=== PATIENT | female | born 2000 | race Caucasian/White ===

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

== ENCOUNTER → 2021-02-16 | Outpatient (CLI) | payer OTHER ==
[~2021-02-16] MED LIST changes: +ALEV220T22 PO; -CLON0.2T; +CYAN500T14 PO; +DICY20TA11 PO; +DOXY-443 PO; +HYDR50TA70 PO; +LAMO150T3 PO; +MAGN1CAP PO; +NOXI1TAB PO; +PROBCAP14 PO; +XYZASOL2 PA
[2021-02-16 13:18] LABS: BASO # 0.1 10^3/uL (0.0-0.2); BASO % 0.7 % (0.0-1.0); EOS # 0.3 10^3/uL (0.0-0.5); EOS % 4.5 % (0.0-3.0); HEMATOCRIT 38.7 % (36.0-47.0); HEMOGLOBIN 12.7 g/dl (12.0-15.5); LYMPH # 2.8 10^3/uL (1.5-5.0); LYMPH % 40.8 % (24.0-44.0); MEAN CORPUSCULAR HEMOGLOBIN 27.1 pg (27.0-33.0); MEAN CORPUSCULAR HGB CONC 32.8 g/dl (32.0-36.5); MEAN CORPUSCULAR VOLUME 82.5 fl (80.0-96.0); MONO # 0.6 10^3/uL (0.0-0.8); MONO % 9.1 % (2.0-8.0); NEUTROPHILS % 44.6 % (36.0-66.0); PLATELET COUNT, AUTOMATED 250 10^3/uL (150-450); RED BLOOD COUNT 4.69 10^6/uL (4.00-5.40); WHITE BLOOD COUNT 6.7 10^3/uL (4.0-10.0)
[2021-02-16 13:28] LABS: INR 1.04; PARTIAL THROMBOPLASTIN TIME 30.8 SECONDS (25.9-37.0)
[2021-02-16 13:52] LABS: ALBUMIN 3.8 GM/DL (3.2-5.2); ALT/SGPT 21 U/L (12-78); BILIRUBIN,TOTAL 0.3 MG/DL (0.2-1.0); BLOOD UREA NITROGEN 13 MG/DL (7-18); CALCIUM LEVEL 9.2 MG/DL (8.5-10.1); CARBON DIOXIDE LEVEL 30 MEQ/L (21-32); CHLORIDE LEVEL 106 MEQ/L (98-107); GLUCOSE, FASTING 81 MG/DL (70-100); NT-PRO BNP 20 PG/ML (<125); POTASSIUM SERUM 4.1 MEQ/L (3.5-5.1); SODIUM LEVEL 140 MEQ/L (136-145); TOTAL PROTEIN 6.8 GM/DL (6.4-8.2)
== END ==
LOC: M PLALAB 11:03
PROVIDERS: ATTEND Family Medicine
DX: Z01.818 Encounter for other preprocedural examination (principal)

== ENCOUNTER → 2021-02-18 | Outpatient (CLI) | payer OTHER | LOC: M LABSMTC 09:12 | PROVIDERS: ATTEND Anesthesiology | DX: Z01.812 Encounter for preprocedural laboratory examination (principal); Z11.52 Encounter for screening for COVID-19 ==

== ENCOUNTER 2021-02-23 07:53 | Day surgery (SDC) | payer OTHER ==
[~2021-02-23] VITALS: Ht 170.2 cm; Wt 82.5 kg
[~2021-02-23 07:53] MED LIST changes: +HEPARIN SOD (PORCINE) 5000UNITS/ML 1ML VIAL/SYRINGE SQ ONE; +LR 1,000 ML IV ONE; +ceFAZolin SOD 2 GM in IV 1 EA IV ONE
--- OUTSIDE RECORDS SUMMARY | 2021-02-23 07:59 | CCD ---
Author Author [facility] Organization [facility] Address Unknown Phone Unavailable Care Team Providers Care Retail Banking Manager Name Role Phone Kwabena, Paige Unavailable PROBLEMS Type Condition ICD9-CM Code [id number] Code Onset Dates Condition S tatus W/U Status Risk SNOMED Code Notes Problem Attention deficit hyperactivity disorder (ADHD), unspecified ADHD type F90.9 Active confirmed 603357709 Problem Personality disorder F60.9 Active confirmed [id number] Problem Bipolar 1 disorder F31.9 Active confirmed 3 [id number] Problem Anxiety F41.9 Active confirmed [id number] Problem 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 Active confirmed [id number] ALLERGIES No Known Allergies ENCOUNTERS from 2001 to 2021-01-29 Encounter Location Date Provider Diagnosis [address] [id number] Jan, Paigekrystal Yuan IMMUNIZATIONS No Information SOCIAL HISTORY Sex Assigned At : Social History Observation Description Sex Assigned At Unknown REASON FOR REFERRAL No Information VITAL SIGNS No information MEDICATIONS Medication SIG (Take, Route, Frequency, Duration) Notes Start Da te End Date Status Probiotic - as directed Orally Activ e Doxycycline Monohydrate 100 MG 1 capsule Orally BID Active Dicyclomine HCl 20 MG 1 tablet Orally Three times a day for 30 day(s) Active hydrOXYzine HCl 50 MG ii Orally qd Jun, Active Lexapro 20 MG 1 tablet Orally Once a day Active Albuterol Sulfate (2.5 MG/3ML) 0.083% 3 ml as needed Inhalation jamie ry 6 hrs Active Vyvanse 20 MG 1 capsule in the morning Orally Once a day DX F9 0.9 Dec, Active B Complex - as directed Orally Activ e Nexplanon 68 MG as directed Subcutaneous Active D3 High Potency 25 MCG (1000 UT) 1 capsule Orally Once a day for 30 day(s) Active LaMICtal 150 MG 1tablet Orally Once a day Feb, Active Xyzal Allergy 24HR 5 MG 1 tablet in the evening Orally Once a day for 30 day(s) Active PROCEDURES No Information RESULTS No Results REASON FOR VISIT today's appt MEDICAL (GENERAL) HISTORY Type Description Date Medical History maintenance planner Medical History possible testoterone replacement Surgical History tonsils and adenoids removed 6 years old Surgical History tubes in ears age 6 Hospitalization History [facility] [place] FOR 2 WEEKS 2018 Goals Section No Information Health Concerns No Information MEDICAL EQUIPMENT No Information MENTAL STATUS No Information FUNCTIONAL STATUS No Information ASSESSMENTS No Information PLAN OF TREATMENT Medication Medication Name Sig Start Date Stop Date Lexapro 20 MG 1 tablet Orally Once a day LaMICtal 150 MG 1tablet Orally Once a day Feb, hydrOXYzine HCl 50 MG ii Orally qd Jun, Vyvanse 20 MG 1 capsule in the morning Orally Once a day DX F9 0.9 Dec, Next Appt Details Provider Name:Domi Abdul, 2021-01 10:00:00 AM, [address] [place] [address], [id number], Insurance Providers Payer Name Payer Address Payer Phone Insured Name Patient Relati onship to Insured Coverage Start Date Coverage End Date ON LICENSE OF [facility] [employer] MEDICAID [address] [facility] [id number] Shannon Lucas self
--- OUTSIDE RECORDS SUMMARY | 2021-02-23 07:59 | CCD | Continuity of Care Document ---
Author Author Shannon JOSEPH DO Organization Unknown Address [address] [place] [address] Phone [phone] Care Team Providers Care Sustainable Agriculture Faculty Name Role Phone Marilee Winchester M.D. AUTM [phone] Shanelle Spain P.A.-C AUTM [phone] Sdio AUTM [phone] Problems Active Problems Provider Date Chronic tonsillitis Jet Esquivel MD Onset: 06/16/2014 Hypertrophy of adenoids Jet Esquivel MD Onset: 5 Temporomandibular joint disorder Avila Gilmore MD Onset: 06/16/2014 Sialoadenitis Avila Gilmore MD Onset: 06/16/2014 Social History Type Date Description Comments Sex Female ETOH Use Denies alcohol use Tobacco Use Start: Unknown Smoke Free Home Tobacco Use Start: Unknown Denies Smoking Smoking Status Reviewed: 09/08/20 Denies Smoking Allergies and adverse reactions Active Allergies Criticality Reaction | Severity Comments Date Seasonal Unable to assess criticality 06/16/2014 Medications Active Medications SIG Qnty Indications Ordering Provide r Date Vyvanse 20mg Capsules 1cap po qd Unknown Xyzal Allergy 24HR 5mg Tablets 1tab po qd Unknown Lamictal 150mg Tablets 1tab p o qd Unknown Probiotic Capsules 1cap po q d Unknown Vitamin D3 25mcg (1000 Ut) Capsule s 1cap po qd Unknown Vitamin B12 1000mcg Tablets ER 1tab po qd Unknown Hydroxyzine HCL 50mg Tablets 1 po qhs prn Unknown Lexapro 20mg Tablets 1 by mouth every day Unknown Immunizations Description No Information Available Vital Signs Date Vital Result Comment 02/15/2021 11:37am BP Systolic 128 mmHg BP Diastolic 72 mmHg Heart Rate 88 /min Respiratory Rate 16 /min Body Temperature 98.1 F Height 67 inches 5'7" Weight 182.00 lb BMI (Body Mass Index) 28.5 kg/m2 [place] Body Weight 148 lb Weight 82.555 kg Weight Percentile 83rd Height Percentile 18 % BSA (Body Surface Area) 1.94 m2 05/20/2020 9:07am BP Systolic 118 mmHg BP Diastolic 62 mmHg Height 67 inches 5'7" Weight 169.00 lb BMI (Body Mass Index) 26.5 kg/m2 [place] Body Weight 148 lb Weight 76.658 kg Weight Percentile 73rd Height Percentile 19 % BSA (Body Surface Area) 1.88 m2 Results Description No Information Available Procedures Date Code Description Status 09/07/2020 95155 Office/Outpatient Established Mo d MDM 30-39 Min Completed Medical Devices Description No Information Available Encounters Type Date Location Provider Dx Diagnosis Office Visit 09/07/2020 3:30p [facility] Aneta Joseph, DO N62 Hypertrophy of breast F64.9 Gender identity disorder, un specified Assessments Date Code Description Provider 02/22/2021 N62 Hypertrophy of breast Aneta Pale y, DO 02/22/2021 F64.9 Gender identity disorder, unspec ified Aneta Opal, DO 02/15/2021 N62 Hypertrophy of breast Aneta Pale y, DO 02/15/2021 F64.9 Gender identity disorder, unspec ified Aneta Opal, DO 09/07/2020 N62 Hypertrophy of breast Aneta Pale y, DO 09/07/2020 F64.9 Gender identity disorder, unspec ified Aneta Opal, DO Plan of Treatment Future Appointment(s):* 02/23/2021 9:30 am - Aneta Joseph DO at [facility]astic Surgery * 03/01/2021 10:15 am - Aneta Joseph DO at [facility] Plastic Surgery 02/22/2021 - Aneta Joseph DO* N62 Hypertrophy of breast* Comments:* Consent signed today in the presence of the mother.Risk, benefits, and alternatives of the procedure were discussed with patient in details again and informed c onsent was signed and faxed to the hospital.Return to the office postop. * F64.9 Gender identity disorder, unspecified Functional Status Description No Information Available Mental Status Description No Information Available Referrals Refer to Reason for Referral Status Appt Date Aneta Joseph D.O. CHEST MASCULINIZATION Scheduled [address], [place] [address] [phone] Aneta Joseph D.O. BREAST REDUCTION Closed 09/07/[address], [place] [address] [phone]
--- OUTSIDE RECORDS SUMMARY | 2021-02-23 07:59 | CCD | Continuity of Care Document ---
Author Author Shannon JIANG Organization Unknown Address [address], [place] [address] Phone [phone] Care Team Providers Care Case Preparer And Liner Name Role Phone Marilee Winchester MD AUTM Unavailable Shanelle Spain AUTM [phone] Problems Active Problems Provider Date Allergic rhinitis due to pollen Onset: 0 10/18/2018 Note: On IT. 4+ reaction to tree pollen (maple) and ragweed pollen on scratch test. 4+ reaction to tree mix #2 and 3+ reaction to weeds on intradermal test. Allergic rhinitis due to house dust mite Onset: 10/18/2018 Note: On maintenance immunotherapy since April 2017. Repeat skin test showed 4+ reaction to dust mites on intradermal test. Allergic rhinitis caused by mold Julien Jiang M.D. O nset: 07/23/2014 Note: On IT. 3+ reaction to molds on int radermal test. 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 Onset: Social History Type Date Description Comments Sex Unknown Tobacco Use Reviewed: 12/03/20 Patient has never smoked Smoking Status Reviewed: 12/03/20 Patient has never smoked Allergies and adverse reactions Description No Known Drug Allergies Medications Active Medications SIG Qnty Indications Ordering Provide r Date Flonase Allergy Relief 50mcg/Act Suspension 2 sprays each nostril every night 22.2ml J30.1 Julien Jiang M.D. 10/26/2020 Albuterol Sulfate HFA 108(90Base) mcg/Act Aerosol Inhale 2 Puffs By Mouth Every 4 To 6 Hours as Needed 18units J45.30 Julien Jiang M.D. 12/11/2018 Levocetirizine Dihydrochloride 5mg Tablets Take 1 Tablet By Mouth Once Nightly AT Bedtime 30tabs Julien Jiang M.D. 07/02/2018 Vyvanse 20mg Capsules 1 tablet by mouth once daily Unknown 12/07/2017 Lexapro 10mg Tablets take 1 tablet (10 mg) by oral route once daily Unknown 000 Clonidine HCL 0.2mg Tablets take 1 tablet (0.2 mg) by oral route once daily Unknown Banophen 50mg Capsules Take 1 capsule once daily at bedtime Unknown Escitalopram Oxalate 20mg Tablets Take 1 Tablet By Mouth Every Day Unknown Buspirone HCL 5mg Tablets Take 1 Tablet By Mouth Twice A Day Unknown Lamotrigine 100mg Tablets Take 1 Tablet By Mouth Once A Day. Unknown Dicyclomine HCL 20mg Tablets Take 1 Tablet By Mouth Four Times A Day Unknown Hydroxyzine HCL 50mg Tablets Take 2 Tablets By Mouth AT Bedtime Unknown Medications Administered in Office Medication SIG Qnty Indications Ordering Provider Date Allergy Injection 2 Or More Injection Julien Jiang M.D. 02/16/2021 Allergy Injection 2 Or More Injection Julien Jiang M.D. 01/23/2021 Allergy Injection 2 Or More Injection Julien Jiang M.D. 12/28/2020 Allergy Injection 2 Or More Injection Julien Jiang M.D. 12/09/2020 Allergy Injection 2 Or More Injection Julien Jiang M.D. 11/24/2020 Allergy Injection 2 Or More Injection Julien Jiang M.D. 10/27/2020 Allergy Injection 2 Or More Injection Julien Jiang M.D. 10/05/2020 Allergy Injection 2 Or More Injection Julien Jiang M.D. 09/15/2020 Allergy Injection 2 Or More Injection Julien Jiang M.D. 08/17/2020 Allergy Injection 2 Or More Injection JulienValerie Norris.DTonja 07/27/2020 Allergy Injection 2 Or More Injection JulienValerie Norris.DTonja 07/06/2020 Allergy Injection 2 Or More Injection Julien Evelyn, M.DTonja 06/16/2020 Allergy Injection 2 Or More Injection Julienximena Jiang M.DTonja 05/27/2020 Allergy Injection 2 Or More Injection JulienValerie Norris.DTonja 05/04/2020 Allergy Injection 2 Or More Injection Julien Valerie Jiang.DTonja 04/13/2020 Allergy Injection 2 Or More Injection JulienValerie Norris.DTonja 03/30/2020 Allergy Injection 2 Or More Injection JulienValerie Norris.DTonja 03/09/2020 Allergy Injection 2 Or More Injection JulienValerie Norris.DTonja 02/17/2020 Allergy Injection 2 Or More Injection Julienximena Jiang M.D. 01/27/2020 Allergy Injection 2 Or More Injection JulienValerie Norris.DTonja 01/06/2020 Allergy Injection 2 Or More Injection JulienValerie Norris.DTonja 12/17/2019 Allergy Injection 2 Or More Injection JulienValerie Norris.DTonja 11/22/2019 Allergy Injection 2 Or More Injection JulienValerie Norris.DTonja 11/04/2019 Allergy Injection 2 Or More Injection JulienValerie Norris.Jaziel 10/14/2019 Allergy Injection 2 Or More Injection JulienValerie Norris.DTonja 09/24/2019 Allergy Injection 2 Or More Injection Julien Evelyn M.DTonja 09/02/2019 Allergy Injection 2 Or More Injection Julien Evelyn M.DTonja 08/14/2019 Allergy Injection 2 Or More Injection Julien Evelyn M.DTonja 07/22/2019 Allergy Injection 2 Or More Injection Julien Evelyn M.DTonja 07/01/2019 Allergy Injection 2 Or More Injection Julienximena Jiang M.DTonja 06/11/2019 Allergy Injection 2 Or More Injection JulienValerie Norris.DTonja 05/20/2019 Allergy Injection 2 Or More Injection Julien Chrostowski, M.D. 05/01/2019 Allergy Injection 2 Or More Injection Julien Jiang M.D. 04/05/2019 Allergy Injection 2 Or More Injection JO Peña 03/15/2019 Allergy Injection 2 Or More Injection Julien Jiang M.D. 03/15/2019 Allergy Injection 2 Or More Injection Julien Jiang M.D. 02/25/2019 Allergy Injection 2 Or More Injection Julien Jiang M.D. 02/04/2019 Allergy Injection 2 Or More Injection Julien Jiang M.D. 01/14/2019 Allergy Injection 2 Or More Injection Julien Jiang M.D. 12/25/2018 Allergy Injection 2 Or More Injection JO Jacobo 12/03/2018 Allergy Injection 2 Or More Injection Julien Jiang M.D. 12/03/2018 Allergy Injection 2 Or More Injection Julien Jiang M.D. 11/14/2018 Immunizations Description No Information Available Vital Signs Date Vital Result Comment 12/03/2020 10:06am Weight 179.12 lb Height 66.5 inches 5'6.50" Heart Rate 98 /min Respiratory Rate 18 /min BP Systolic 107 mmHg BP Diastolic 74 mmHg BMI (Body Mass Index) 28.5 kg/m2 10/26/2020 1:05pm Weight 176.00 lb Height 66.5 inches 5'6.50" Heart Rate 80 /min Respiratory Rate 16 /min BP Systolic 105 mmHg BP Diastolic 72 mmHg BMI (Body Mass Index) 28.0 kg/m2 Results Description No Information Available Procedures Date Code Description Status 02/16/2021 31456 Allergy Injection 2 Or More Comp leted 01/23/2021 65229 Allergy Injection 2 Or More Comp leted 12/28/2020 67004 Allergy Injection 2 Or More Comp leted 12/09/2020 38296 Allergy Injection 2 Or More Comp leted 12/03/2020 83692 Allergy Tests Intrad ermal W/ Allergenic Extr Immediate Reaction Completed 12/03/2020 52761 Allergy Tests Percutaneous W/ Al lergenic Extracts Completed 11/24/2020 13549 Allergy Injection 2 Or More Comp leted 10/27/2020 43295 Allergy Injection 2 Or More Comp leted 10/26/2020 40599 Office/Outpatient Established Lo w MDM 20-29 Min Completed 10/26/2020 22981 Bronchodilation Resp onsiveness Spirometry Pre/Post Bronchodil Adm Completed 10/05/2020 70283 Allergy Injection 2 Or More Comp leted 09/15/2020 74539 Allergy Injection 2 Or More Comp leted 08/21/2020 61920 Allergy Antigens Single Or Multi ple Completed Medical Devices Description No Information Available Encounters Type Date Location Provider Dx Diagnosis Office Visit 10/26/2020 1:00p Main Office Julien Jiang M.D. J30.1 Allergic rhinitis due to pollen J30.89 Other allergic rhinitis J45.20 Mild intermittent asthma, un complicated Assessments Date Code Description Provider 02/16/2021 J30.1 Allergic rhinitis due to pollen Julien Jiang M.D. 02/16/2021 J30.89 Other allergic rhinitis Julien Jiang M.D. Plan of Treatment Future Appointment(s):* 03/09/2021 3:10 pm - Allergy Injection at Main Office 12/03/2020 - Julien Jiang M.D.* Z01.82 Encounter for allergy testing * J30.1 Allergic rhinitis due to pollen* Recommendations:* Effective allergen avoidance measures were reviewed and recommended. The patient should continue on maintenance allergen immunotherapy as per protocol. She may use oral antihistamine as needed for itching and/or sneezing as well as on days she gets her allergy injections. If her rhinitis symptoms become more persistent, she may consider to restart steroid-based nasal spray (Flonase). * J30.89 Other allergic rhinitis* Recommendations:* I reviewed effective allergy avoidance measures for dust mites. See recommendations above. * All * Follow up:* As scheduled. * Recommendations:* Repeat skin test excluded allergy to cats and dogs which she is exposed to in her home. Functional Status Description No Information Available Mental Status Description No Information Available Referrals Refer to Reason for Referral Status Appt Date Closed Created
--- OUTSIDE RECORDS SUMMARY | 2021-02-23 07:59 | CCD ---
Author Author [facility] [employer] Organization [facility] [employer] Address Unknown Phone Unavailable Care Team Providers Care Brand Ambassadors Promotional Sales Name Role Phone Adonis Calles Unavailable PROBLEMS Type Condition ICD9-CM Code [id number] Code Onset Dates Condition S tatus W/U Status Risk SNOMED Code Notes Problem Adult ADHD F90.9 Active confirmed 628451002 Problem Vitamin D deficiency E55.9 Active confirmed 88929913 Problem Sexual identity disorder F64.2 Active confirmed 321220826 Problem Bipolar 1 disorder F31.9 Active confirmed 3 10705661 Problem Abnormal uterine bleeding (AUB) N93.9 Active confirmed [id number] Problem Non-seasonal allergic rhinitis, unspecified trigger J30.89 Active confirmed 48181666 ALLERGIES Allergen (clinical drug ingredient) Drug/Non Drug Allergy do cumented on EMR Reaction Allergy Type Onset Date Status Pollen Pollen Unknown Drug Allergy Active ENCOUNTERS from 2001 to 2021-02-18 Encounter Location Date Provider Diagnosis [address] [phone] [place] [address] Feb, Adonis Calles IMMUNIZATIONS Vaccine Route Administration Date Status COVID-19 dose #1 given elsewhere Unspecified Unknown May Administered Influenza 18 yrs & older Flublok IM Intramuscular Dec 16, 2019 Administered SOCIAL HISTORY Tobacco Use: Social History Observation Description Date Details (start date - stop date) Never Smoker Sex Assigned At : Social History Observation Description Sex Assigned At Unknown Education: Question Answer Notes Level of Education: Not finished High School 12th grade stud ent Audit Question Answer Notes Total Score: 0 Interpretation: Alcohol Education Scientologist: Question Answer Notes Scientologist 33 None Drug and Alcohol Question Answer Notes Total Score: 0 Interpretation: No problems reported Alcohol Screening: Question Answer Notes Did you have a drink containing alcohol in the past year? No Points 0 Interpretation Negative BMI Care Goal Follow-Up Question Answer Notes Above Normal BMI Follow-Up Giving encouragement to exercise Tobacco Use: Question Answer Notes Are you a: never smoker never smoker REASON FOR REFERRAL No Information VITAL SIGNS No information MEDICATIONS Medication SIG (Take, Route, Frequency, Duration) Notes Start Da te End Date Status Vyvanse 20 MG 1 tab Orally Daily Act miguel Probiotic - as directed Orally Activ e lamoTRIgine 150 MG 1 tablet Orally Once a day Active Doxycycline Monohydrate 100 MG TAKE 1 CAPSULE BY MOUTH TWICE A DAY fo r 30 Active Xyzal 5 MG 1 tablet in the evening Orally Once a day Active Nexplanon 68 MG as directed Subcutaneous Apr, Active Lexapro 20 MG 1 tablet Orally Once a day Active Magnesium 400 MG as directed Orally Active Vitamin B Complex - as directed Orally Active hydrOXYzine HCl 50 MG 2 tablet as needed Orally before bedtime Active Dicyclomine HCl 20 MG 1 tablet Orally four times daily for 30 Days Active Vitamin D3 25 MCG (1000 UT) 1 capsule Orally Once a day Active PROCEDURES No Information RESULTS No Results REASON FOR VISIT No Information MEDICAL (GENERAL) HISTORY Type Description Date Medical History sexual identity disorder-trans male Medical History allergic rhinitis Medical History vitamin D deficiency Medical History asthma, mild intermittent Medical History sexual identity disorder Medical History bipolar, type 1/OCD/adult ADHD Surgical History tubes ears Surgical History T&A Hospitalization History [facility] 2019 Goals Section No Information Health Concerns No Information MEDICAL EQUIPMENT No Information MENTAL STATUS No Information FUNCTIONAL STATUS No Information ASSESSMENTS No Information PLAN OF TREATMENT Medication Medication Name Sig Start Date Stop Date Nexplanon 68 MG as directed Subcutaneous Apr, Vyvanse 20 MG 1 tab Orally Daily Vitamin D3 25 MCG (1000 UT) 1 capsule Orally Once a day Xyzal 5 MG 1 tablet in the evening Orally Once a day lamoTRIgine 150 MG 1 tablet Orally Once a day Doxycycline Monohydrate 100 MG TAKE 1 CAPSULE BY MOUTH TWICE A D AY for 30 Next Appt Details Provider Name:Roxanna Acuna, 2021-04-19 09:00:00 AM, [address] [place] [address], , [place], [address], Provider Name:Donna Henderson, 2021-10-12 08:15:00 AM, [address] [facility], , [place], [address], Insurance Providers Payer Name Payer Address Payer Phone Insured Name Patient Relati onship to Insured Coverage Start Date Coverage End Date Subscriber Number Group Nu mber [facility] [address] [facility] [address] NELL CABALLERO self [id number] [facility]
--- OUTSIDE RECORDS SUMMARY | 2021-02-23 07:59 | CCD | Continuity of Care Document ---
Author Author Shannon JOSEPH DO Organization Unknown Address [address] [place] [address] Phone [phone] Care Team Providers Care Computer System Validation Specialist Name Role Phone Marilee Winchester M.D. AUTM [phone] Shanelle Spain P.A.-C AUTM [phone] Sdio AUTM [phone] Problems Active Problems Provider Date Chronic tonsillitis [...] lb BMI (Body Mass Index) 28.5 kg/m2 [place] Body Weight 148 lb Weight 82.555 kg Weight Percentile 83rd Height Percentile 18 % BSA (Body Surface Area) 1.94 m2 05/20/2020 9:07am BP Systolic 118 mmHg BP Diastolic 62 mmHg Height 67 inches 5'7" Weight 169.00 lb BMI (Body Mass Index) 26.5 kg/m2 [place] Body Weight 148 lb Weight 76.658 kg Weight Percentile 73rd Height Percentile 19 % BSA (Body Surface Area) 1.88 m2 Results Description No Information Available Procedures Date Code Description Status 09/07/2020 11494 Office/Outpatient Established Mo d MDM 30-39 Min Completed Medical Devices Description No Information Available Encounters Type Date Location Provider Dx Diagnosis Office Visit 09/07/2020 3:30p [facility] Aneta Joseph DO N62 Hypertrophy of breast F64.9 Gender identity disorder, un specified Assessments Date Code Description Provider 09/07/2020 N62 Hypertrophy of breast Aneta mejia DO 09/07/2020 F64.9 Gender identity disorder, unspec ified Aneta Joseph DO Plan of Treatment Future Appointment(s):* 02/23/2021 9:30 am - Aneta Joseph DO at [facility] * 03/01/2021 10:15 am - Aneta Joseph DO at [facility] Functional Status Description No Information Available Mental Status Description No Information Available Referrals Refer to Reason for Referral Status Appt Date Aneta Joseph D.O. [facility] [address] [place] [address], [place] [address] [phone] Aneta Joseph D.O. BREAST REDUCTION Closed 09/07/[address], [place] [address] [phone]
--- OUTSIDE RECORDS SUMMARY | 2021-02-23 07:59 | CCD | Continuity of Care Document ---
Author Author Shannon JOSEPH DO Organization Unknown Address [address] [place] [address] Phone [phone] Care Team Providers Care Three Dimensional Art Instructor Name Role Phone Marilee Winchester M.D. AUTM [phone] Shanelle Spain P.A.-C AUTM [phone] Sdio AUTM [phone] Problems Active Problems Provider Date Chronic tonsillitis [...] lb BMI (Body Mass Index) 28.5 kg/m2 [place] Body Weight 148 lb Weight 82.555 kg Weight Percentile 83rd Height Percentile 18 % BSA (Body Surface Area) 1.94 m2 05/20/2020 9:07am BP Systolic 118 mmHg BP Diastolic 62 mmHg Height 67 inches 5'7" Weight 169.00 lb BMI (Body Mass Index) 26.5 kg/m2 [place] Body Weight 148 lb Weight 76.658 kg Weight Percentile 73rd Height Percentile 19 % BSA (Body Surface Area) 1.88 m2 Results Description No Information Available Procedures Date Code Description Status 09/07/2020 38320 Office/Outpatient Established Mo d MDM 30-39 Min Completed Medical Devices Description No Information Available Encounters Type Date Location Provider Dx Diagnosis Office Visit 09/07/2020 3:30p [facility] Plastic Surgery Aneta Joseph, DO [...] 9:30 am - Aneta Joseph DO at [facility] * 03/01/2021 10:15 am - Aneta Joseph DO at [facility] Pl[facility] Surgery 02/22/2021 - Aneta [...] Aneta Joseph D.O. CHEST MASCULINIZATION Scheduled [address], [place] [address] [phone] Aneta Joseph D.O. BREAST REDUCTION Closed 09/07/[address], [place] [address] [phone]
--- OUTSIDE RECORDS SUMMARY | 2021-02-23 07:59 | CCD | Continuity of Care Document ---
Author Author Shannon JIANG Organization Unknown Address [address], [place] [address] Phone [phone] Care Team Providers Care Drawing Press Operator Name Role Phone Marilee Winchester MD AUTM Unavailable Shanelle Spain AUTM [phone] Problems Active Problems Provider Date Allergic rhinitis [...] Allergy Injection 2 Or More Injection JulienValerie Norris.DTonaj 09/24/2019 Allergy Injection 2 Or More Injection [...] Information Available Procedures Date Code Description Status 02/19/2021 10748 Allergy Antigens Single Or Multi ple Completed 02/16/2021 10518 Allergy Injection 2 Or More Comp leted 01/23/2021 67961 Allergy Injection 2 Or More Comp leted 12/28/2020 69353 Allergy Injection 2 Or More Comp leted 12/09/2020 90365 Allergy Injection 2 Or More Comp leted 12/03/2020 18695 Allergy Tests Intrad ermal W/ Allergenic Extr Immediate Reaction Completed 12/03/2020 35141 Allergy Tests Percutaneous W/ Al lergenic Extracts Completed 11/24/2020 80498 Allergy Injection 2 Or More Comp leted 10/27/2020 15006 Allergy Injection 2 Or More Comp leted 10/26/2020 83631 Office/Outpatient Established Lo w MDM 20-29 Min Completed 10/26/2020 07165 Bronchodilation Resp onsiveness Spirometry Pre/Post Bronchodil Adm Completed 10/05/2020 33247 Allergy Injection 2 Or More Comp leted 09/15/2020 54359 Allergy Injection 2 Or More Comp leted 08/21/2020 63489 Allergy Antigens Single Or Multi ple Completed Medical Devices Description No Information Available Encounters Type Date Location Provider Dx Diagnosis Office Visit 10/26/2020 1:00p Main Office Julien Jiang M.D. J30.1 Allergic rhinitis due to pollen J30.89 Other allergic rhinitis J45.20 Mild intermittent asthma, un complicated Assessments Date Code Description Provider 02/19/2021 J30.1 Allergic rhinitis due to pollen Julien Jiang M.D. 02/19/2021 J30.89 Other allergic rhinitis Julien Jiang M.D. [...]
--- OUTSIDE RECORDS SUMMARY | 2021-02-23 07:59 | CCD ---
Author Author [facility] [employer] Organization [facility] [employer] Address Unknown Phone Unavailable Care Team Providers Care Physicist Solid Earth Name Role Phone Roxanna Acuna Unavailable PROBLEMS Type Condition ICD9-CM Code [id number] Code Onset Dates Condition S tatus W/U Status Risk SNOMED Code Notes Problem Obesity (BMI 30.0-34.9) E66.9 Active confirmed [id number] Problem Breakthrough bleeding N92.1 Active confirmed 54815160 Problem Other obsessive-compulsive disorders F42.8 Act miguel confirmed 408600853 Problem Sexual identity disorder F64.2 Active confirmed 110642784 Problem Seasonal allergies J30.2 Active confirmed 4 97511777 Problem Oligomenorrhea N91.5 Active confirmed 35395 004 Problem Other chronic pain G89.29 Active confirmed 8 8153904 Problem Irregular menses N92.6 Active confirmed 801 04161 Problem Anxiety F41.9 Active confirmed 52602887 Problem Bipolar 1 disorder F31.9 Active confirmed 3 42848216 Problem Multiple allergies Z88.9 Active confirmed 6 53763290 Problem Abnormal uterine bleeding (AUB) N93.9 Active confirmed 74427520273165 ALLERGIES Allergen (clinical drug ingredient) Drug/Non Drug Allergy do cumented on EMR Reaction Allergy Type Onset Date Status Pollen Pollen Unknown Drug Allergy Active ENCOUNTERS from 2001 to 2021-02-12 Encounter Location Date Provider Diagnosis [address] [phone] [place] [address] Feb, Roxanna Armand IMMUNIZATIONS Vaccine Route Administration Date Status COVID-19 [...] Notes Total Score: 0 Interpretation: Alcohol Education Baptist: Question Answer Notes Baptist 33 None Drug and Alcohol Question Answer [...] Notes Start Da te End Date Status Vitamin B Complex - as directed Orally Active Dicyclomine HCl 20 MG 1 tablet Orally four times daily for 30 Days Active cloNIDine HCl 0.2 MG 1 tablet Orally three times a day Active Lexapro 20 MG 1 tablet Orally Once a day Active busPIRone HCl 5 MG 2 tablets Orally once a day Active Vyvanse 20 MG 1 tab Orally Daily Act miguel Probiotic - as directed Orally Activ e hydrOXYzine HCl 50 MG 1 tablet as needed Orally before bedtime Active Triamcinolone Acetonide 0.1 % 1 application Externally Once a day at night for 14 days prn Aug, Active Tretinoin 0.025 % 1 application (pea sized carrington unt) to face/neck Externally Once a day Active lamoTRIgine 100 MG Oral Active Ketoconazole 2 % APPLY EXTERNALLY TO AFFECTED AREAS OF NE CK ONCE A DAY. for 30 Active Nexplanon 68 MG as directed Subcutaneous Apr, Active Doxycycline Monohydrate 100 MG TAKE 1 CAPSULE BY MOUTH TWICE A DAY fo r 30 Active Xyzal 5 MG 1 tablet in the evening Orally Once a day Active Vitamin D3 25 MCG (1000 UT) 1 capsule Orally Once a day for 30 day(s) Active PROCEDURES No Information RESULTS No Results REASON FOR VISIT HC MEDICAL (GENERAL) HISTORY Type Description Date Medical History ADHD Medical History Dyslexia Medical History Allergies Medical History anxiety Medical History asthma Medical History sexual identity disorder Medical History Manic/depressive bipolar, ?borderline pe rsonality Medical History has been tested for autism s pectrum disorder but told he has OCD and ADHD Surgical History tubes ears Surgical History T&A Hospitalization History [facility] 2019 Goals Section No Information Health Concerns No Information MEDICAL EQUIPMENT No Information MENTAL STATUS No Information FUNCTIONAL STATUS No Information ASSESSMENTS No Information PLAN OF TREATMENT Medication Medication Name Sig Start Date Stop Date Ketoconazole 2 % APPLY EXTERNALLY TO AFFECTED AREAS OF NE CK ONCE A DAY. for 30 Doxycycline Monohydrate 100 MG TAKE 1 CAPSULE BY MOUTH TWICE A D AY for 30 Dicyclomine HCl 20 MG 1 tablet Orally four times daily for 30 Da ys Next Appt Details Provider Name:Adonis Calles, 2021-02-16 0 9:45:00 AM, [address] [place] [address] , [place], [address], Provider Name:Roxanna Acuna, 2021-04-19 09:00:00 AM, [address] [place] [address] , [place], [address], Provider Name:Donna Henderson, 2021-10-07 08:15:00 AM, [address] [place] [address] , [place], [address], Insurance Providers Payer Name Payer Address Payer Phone Insured Name Patient Relati onship to Insured Coverage Start Date Coverage End Date [facility] [id number] [place] [address] NELL CABALLERO [facility] [address] [facility] [address] NELL CABALLERO self
--- OUTSIDE RECORDS SUMMARY | 2021-02-23 07:59 | CCD ---
Author Author [facility] [employer] Organization [facility] [employer] Address Unknown Phone Unavailable Care Team Providers Care Head Of It Name Role Phone Adonis Calles Unavailable PROBLEMS Type Condition ICD9-CM Code [id number] Code Onset Dates Condition S tatus W/U Status Risk SNOMED Code Notes Problem Adult ADHD F90.9 Active confirmed 139156374 Problem Vitamin D deficiency E55.9 Active confirmed 97712764 Problem Sexual identity disorder F64.2 Active confirmed 390635847 Problem Bipolar 1 disorder F31.9 Active confirmed 3 75171648 Problem Abnormal uterine bleeding (AUB) N93.9 Active confirmed 08516578449618 Problem Non-seasonal allergic rhinitis, unspecified trigger J30.89 Active confirmed 93839845 ALLERGIES Allergen (clinical drug ingredient) Drug/Non Drug Allergy do cumented on EMR Reaction Allergy Type Onset Date Status Pollen Pollen Unknown Drug Allergy Active ENCOUNTERS from 2001 to 2021-02-16 Encounter Location Date Provider Diagnosis [address] [phone] [place] [address] Feb, Adonis Stevan Bipolar 1 disorder F31.9 ; P reoperative clearance Z01.818 ; Sexual identity disorder F64.2 ; Abnormal uterine bleeding (AUB) N93.9 ; Non-seasonal allergic rhinitis, unspecified trigger J30.89 ; Vitamin D deficiency E55.9 and Adult ADHD F90.9 IMMUNIZATIONS Vaccine Route Administration Date Status COVID-19 [...] Notes Total Score: 0 Interpretation: Alcohol Education Adventism: Question Answer Notes Adventism 33 None Drug and Alcohol Question Answer [...] REASON FOR REFERRAL No Information VITAL SIGNS Weight 181.8 lbs Feb, Weight-kg 82.46 kg Feb, Height 66.5 in Feb, BMI 28.90 kg/m2 Feb, Heart Rate 103 /min Feb, Respiratory Rate 18 /min Feb, Temperature 98.5 degrees Fahrenheit Feb, Oximetry 100% Feb, Blood pressure systolic 120 mm Hg Feb, Blood pressure diastolic 70 mm Hg Feb, MEDICATIONS Medication SIG (Take, Route, Frequency, Duration) Notes Start Da te End Date Status Vyvanse 20 MG 1 tab Orally Daily Act miguel Lexapro 20 MG 1 tablet Orally Once a day Active lamoTRIgine 150 MG 1 tablet Orally Once a day Active Probiotic - as directed Orally Activ e Doxycycline Monohydrate 100 MG TAKE 1 CAPSULE BY MOUTH TWICE A DAY fo r 30 Active Nexplanon 68 MG as directed Subcutaneous Apr, Active Vitamin D3 25 MCG (1000 UT) 1 capsule Orally Once a day Active Magnesium 400 MG as directed Orally Active Vitamin B Complex - as directed Orally Active hydrOXYzine HCl 50 MG 2 tablet as needed Orally before bedtime Active Dicyclomine HCl 20 MG 1 tablet Orally four times daily for 30 Days Active Xyzal 5 MG 1 tablet in the evening Orally Once a day Active PROCEDURES No Information RESULTS Component Value Reference Range NT-PRO BNP Reviewed date:02/16/2021 16:01:47 Interpretation: Performing Lab:[facility], [facility] [id number] , ,[place] [address] NT-PRO BNP 20 <125 CBC with Differential Reviewed date:02/16/2021 16:01:40 Interpretation: Performing Lab:[facility] [address] [facility] [id number] , ,[facility] WHITE BLOOD COUNT 6.7 4.0-10.0 RED BLOOD COUNT 4.69 4.00-5.40 HEMOGLOBIN 12.7 12.0-15.5 HEMATOCRIT 38.7 36.0-47.0 MEAN CORPUSCULAR VOLUME 82.5 80.0-96.0 MEAN CORPUSCULAR HEMOGLOBIN 27.1 27.0-33.0 MEAN CORPUSCULAR HGB CONC 32.8 32.0-36.5 RED CELL DISTRIBUTION WIDTH 13.2 11.5-14.5 PLATELET COUNT, AUTOMATED 250 150-450 NEUTROPHILS % 44.6 36.0-66.0 LYMPH % 40.8 24.0-44.0 MONO % 9.1 2.0-8.0 EOS % 4.5 0.0-3.0 BASO % 0.7 0.0-1.0 NEUTROPHILS # 3.0 1.5-8.5 LYMPH # 2.8 1.5-5.0 MONO # 0.6 0.0-0.8 EOS # 0.3 0.0-0.5 BASO # 0.1 0.0-0.2 Comprehensive Metabolic Profile (CMP) Reviewed date:02/16/2021 16:01:38 Interpretation: Performing Lab:[facility] [address] [facility] [address] , ,[place] [address] GLUCOSE, FASTING 81 70-100 BLOOD UREA NITROGEN 13 7-18 CREATININE FOR GFR 0.70 0.55-1.30 SODIUM LEVEL 140 136-145 POTASSIUM SERUM 4.1 3.5-5.1 CHLORIDE LEVEL 106 98-107 CARBON DIOXIDE LEVEL 30 21-32 CALCIUM LEVEL 9.2 8.5-10.1 AST/SGOT 15 7-37 ALT/SGPT 21 12-78 ALKALINE PHOSPHATASE 89 45-117 BILIRUBIN,TOTAL 0.3 0.2-1.0 TOTAL PROTEIN 6.8 6.4-8.2 ALBUMIN 3.8 3.2-5.2 ALBUMIN/GLOBULIN RATIO 1.3 1.2-2.2 PT & APTT Reviewed date:02/16/2021 16:01:43 Interpretation: Performing Lab:[facility], [facility] [id number] , ,[place] [address] PROTHROMBIN TIME 14.0 12.7-14.5 INR 1.04 PARTIAL THROMBOPLASTIN TIME 30.8 25.9-37.0 REASON FOR VISIT pre op clearance for chest [facility]in[facility]- General, Mona @ [phone] fax # [phone] DX: N62 MEDICAL (GENERAL) HISTORY Type Description Date Medical History sexual identity disorder-trans male Medical History allergic rhinitis Medical History vitamin D deficiency Medical History asthma, mild intermittent Medical History sexual identity disorder Medical History bipolar, type 1/OCD/adult ADHD Surgical History tubes ears Surgical History T&A Hospitalization History [facility] 2019 Goals Section No Information Health Concerns No Information MEDICAL EQUIPMENT No Information MENTAL STATUS No Information FUNCTIONAL STATUS No Information ASSESSMENTS Encounter Date Diagnosis Assessment Notes Treatment Notes Treatm ent Clinical Notes Feb, Bipolar 1 disorder (ICD-10 - F31.9) Feb, Preoperative clearance (ICD-10 - Z01.818) On 02/16/21 the patient had a stable CBCD, CMP and PT/APTT. On the AM of the surgery, the patient will take lamotrigine with a sip of water. The patient will hold aspirin and ANY NSAID for five (5) days prior to surgery. The patient is currently medically optimized for the above surgery. By the modified RCRI, the patient's 30 day MACE risk is 4%. The patient wishes to assume this risk and proceed with the above surgery. Feb, Sexual identity disorder (ICD-10 - F64.2) Feb, Abnormal uterine bleeding (AUB) (ICD-10 - N93.9) Feb, Non-seasonal allergic rhinit is, unspecified trigger (ICD-10 - J30.89) Feb, Vitamin D deficiency (ICD-10 - E55.9) Feb, Adult ADHD (ICD-10 - F90.9) PLAN OF TREATMENT Medication Medication Name Sig Start Date Stop Date Nexplanon 68 MG as directed Subcutaneous Apr, Vyvanse 20 MG 1 tab Orally Daily Vitamin D3 25 MCG (1000 UT) 1 capsule Orally Once a day Xyzal 5 MG 1 tablet in the evening Orally Once a day lamoTRIgine 150 MG 1 tablet Orally Once a day Treatment Notes Assessment Notes Clinical Notes Preoperative clearance On 02/16/21 the pa vanda had a stable CBCD, CMP and PT/APTT. On the AM of the surgery, the patient will take lamotrigine with a sip of water. The patient will hold aspirin and ANY NSAID for five (5) days prior to surgery. The patient is currently medically optimized for the above surgery. By the modified RCRI, the patient's 30 day MACE risk is 4%. The patient wishes to assume this risk and proceed with the above surgery. Next Appt Details , BW NOW Reason: Provider Name:Roxanna Acuna, 2021-04-19 09:00:00 AM, [address] [place] [address] , [place], [address] Provider Name:Donna Henderson, 2021-10-12 08:15:00 AM, [address] [place] [address] , [place], [address], Insurance Providers Payer Name Payer Address Payer Phone Insured Name Patient Relati onship to Insured Coverage Start Date Coverage End Date Subscriber Number Group Nu mber [facility] [address] [facility] [id number] NELL CABALLERO self [id number] [facility]
--- OUTSIDE RECORDS SUMMARY | 2021-02-23 08:00 | CCD | Continuity of Care Document ---
Author Author Shannon JIANG Organization Unknown Address [address], [place] [address] Phone [phone] Care Team Providers Care Architectural Design Lecturer Name Role Phone Marilee Winchester MD AUTM Unavailable Shanelle Spain AUTM [phone] Problems Active Problems Provider Date Allergic rhinitis [...] 08/17/2020 Allergy Injection 2 Or More Injection Julien Jiang M.D. 07/27/2020 Allergy Injection 2 Or More Injection Julien Jiang M.D. 07/06/2020 Allergy Injection 2 Or More Injection Julien Valerie Jiang.DTonja 06/16/2020 Allergy Injection 2 Or More Injection Julien Evelyn M.DTonja 05/27/2020 Allergy Injection 2 Or More Injection Julien Evelyn, M.DTonja 05/04/2020 Allergy Injection 2 Or More Injection Julien Evelyn M.DTonja 04/13/2020 Allergy Injection 2 Or More Injection Julien Evelyn M.DTonja 03/30/2020 Allergy Injection 2 Or More Injection Julien Evelyn M.DTonja 03/09/2020 Allergy Injection 2 Or More Injection Julien Valerie Jiang.Jaziel 02/17/2020 Allergy Injection 2 Or More Injection JulienValerie Norris.DTonja 01/27/2020 Allergy Injection 2 Or More Injection Julien Evelyn M.DTonja 01/06/2020 Allergy Injection 2 Or More Injection JulienValerie Norris.Jaziel 12/17/2019 Allergy Injection 2 Or More Injection Julien Valerie Jiang.DTonja 11/22/2019 Allergy Injection 2 Or More Injection Julien Evelyn M.DTonja 11/04/2019 Allergy Injection 2 Or More Injection JulienValerie Norris.DTonja 10/14/2019 Allergy Injection 2 Or More Injection Julien Evelyn M.DTonja 09/24/2019 Allergy Injection 2 Or More Injection Julien Evelyn M.DTonja 09/02/2019 Allergy Injection 2 Or More Injection Julien Valerie Jiang.DTonja 08/14/2019 Allergy Injection 2 Or More Injection Julien Evelyn M.DTonja 07/22/2019 Allergy Injection 2 Or More Injection Julien Evelyn M.DTonja 07/01/2019 Allergy Injection 2 Or More Injection Julien Evelyn M.DTonja 06/11/2019 Allergy Injection 2 Or More Injection Julien Evelyn M.DTonja 05/20/2019 Allergy Injection 2 Or More Injection Julien Evelyn M.DTonja 05/01/2019 Allergy Injection 2 Or More Injection Julien Evelyn M.DTonja 04/05/2019 Allergy Injection 2 Or More Injection [...] Information Available Procedures Date Code Description Status 12/28/2020 60087 Allergy Injection 2 Or More Comp leted 12/09/2020 01288 Allergy Injection 2 Or More Comp leted 12/03/2020 32319 Allergy Tests Intrad ermal W/ Allergenic Extr Immediate Reaction Completed 12/03/2020 56314 Allergy Tests Percutaneous W/ Al lergenic Extracts Completed 11/24/2020 57377 Allergy Injection 2 Or More Comp leted 10/27/2020 59681 Allergy Injection 2 Or More Comp leted 10/26/2020 30399 Office/Outpatient Established Lo w MDM 20-29 Min Completed 10/26/2020 65731 Bronchodilation Resp onsiveness Spirometry Pre/Post Bronchodil Adm Completed 10/05/2020 02308 Allergy Injection 2 Or More Comp leted 09/15/2020 07729 Allergy Injection 2 Or More Comp leted 08/21/2020 31036 Allergy Antigens Single Or Multi ple Completed 08/17/2020 73731 Allergy Injection 2 Or More Comp leted 07/27/2020 67642 Allergy Injection 2 Or More Comp leted 07/06/2020 11774 Allergy Injection 2 Or More Comp leted Medical Devices Description No Information Available Encounters Type Date Location Provider Dx Diagnosis Office Visit 10/26/2020 1:00p Main Office Julien Jiang M.D. J30.1 Allergic rhinitis due to pollen J30.89 Other allergic rhinitis J45.20 Mild intermittent asthma, un complicated Assessments Date Code Description Provider 12/28/2020 J30.1 Allergic rhinitis due to pollen Julien Jiang M.D. 12/28/2020 J30.89 Other allergic rhinitis Julien Jiang M.D. Plan of Treatment 12/03/2020 - Julien Jiang M.D.* Z01.82 Encounter [...]
--- OUTSIDE RECORDS SUMMARY | 2021-02-23 08:00 | CCD ---
Author Author [facility] Organization [facility] Address Unknown Phone Unavailable Care Team Providers Care Dehydrating Press Operator Name Role Phone Adonis Calles Unavailable PROBLEMS Type Condition ICD9-CM Code [id number] Code Onset Dates Condition S tatus W/U Status Risk SNOMED Code Notes Problem Obesity (BMI 30.0-34.9) E66.9 Active confirmed [id number] Problem Breakthrough bleeding N92.1 Active confirmed 72182750 Problem Other obsessive-compulsive disorders F42.8 Act miguel confirmed 357849755 Problem Sexual identity disorder F64.2 Active confirmed 678570035 Problem Seasonal allergies J30.2 Active confirmed 4 49988077 Problem Oligomenorrhea N91.5 Active confirmed 61571 004 Problem Other chronic pain G89.29 Active confirmed 8 7596908 Problem Irregular menses N92.6 Active confirmed 801 16703 Problem Anxiety F41.9 Active confirmed 39844042 Problem Bipolar 1 disorder F31.9 Active confirmed 3 28878182 Problem Multiple allergies Z88.9 Active confirmed 6 82179213 Problem Abnormal uterine bleeding (AUB) N93.9 Active confirmed 61283325469584 ALLERGIES Allergen (clinical drug ingredient) Drug/Non Drug Allergy do cumented on EMR Reaction Allergy Type Onset Date Status Pollen Pollen Unknown Drug Allergy Active ENCOUNTERS from 2001 to 2021-01-15 Encounter Location Date Provider Diagnosis [address] [phone] [place] [address] Jan, dAonis Calles IMMUNIZATIONS Vaccine Route Administration Date Status [...] Notes Total Score: 0 Interpretation: Alcohol Education Anglican: Question Answer Notes Anglican 33 None Drug and Alcohol Question Answer [...] Information RESULTS No Results REASON FOR VISIT refills MEDICAL (GENERAL) HISTORY Type Description Date Medical History ADHD Medical History Dyslexia Medical History Allergies Medical History anxiety Medical History asthma Medical History sexual identity disorder Medical History Manic/depressive bipolar, ?borderline pe rsonality Medical History has been tested for autism s pectrum disorder but told he has OCD and ADHD Surgical History tubes ears Surgical History [facility] 2019 Goals Section No Information Health [...] Provider Name:Adonis Calles, 2021-02-16 0 9:45:00 AM, [address] [place] [address] , [place], [address], Provider Name:Roxanna Acuna, 2021-04-19 09:00:00 AM, [address] [place] [address] , [place], [address], Provider Name:Donna Henderson, 2021-10-07 08:15:00 AM, [address] [place] [address], , [place], [address], Insurance Providers Payer Name Payer Address Payer Phone Insured Name Patient Relati onship to Insured Coverage Start Date Coverage End Date [facility] [id number] [place] [address] NELL CABALLERO [facility] [address] [facility] [address] NELL CABALLERO
--- OUTSIDE RECORDS SUMMARY | 2021-02-23 08:00 | CCD ---
Author Author [facility] Organization [facility] Address Unknown Phone Unavailable Care Team Providers Care Blocker Polishing Name Role Phone Shanelle Spain Unavailable PROBLEMS Type Condition ICD9-CM Code LGR19-[id number] Code Onset Dates Condition S tatus W/U Status Risk SNOMED Code Notes Problem Irregular menses N92.6 Active confirmed 801 87960 Problem Obesity (BMI 30.0-34.9) E66.9 Active confirmed 055556880055120 Problem Breakthrough bleeding N92.1 Active confirmed 85999273 Problem Abnormal uterine bleeding (AUB) N93.9 Active confirmed 45284384723420 Problem Oligomenorrhea N91.5 Active confirmed 07863 004 Problem Seasonal allergies J30.2 Active confirmed 4 99030668 Problem Sexual identity disorder F64.2 Active confirmed 615413459 Problem Other obsessive-compulsive disorders F42.8 Act miguel confirmed 754497064 Problem Anxiety F41.9 Active confirmed 15985822 Problem Bipolar 1 disorder F31.9 Active confirmed 3 11744239 Problem Multiple allergies Z88.9 Active confirmed 6 41205815 ALLERGIES Allergen (clinical drug ingredient) Drug/Non Drug Allergy do cumented on EMR Reaction Allergy Type Onset Date Status Seasonal Allergies Unknown Non Drug Allergy Active ENCOUNTERS from 2001 to 2020-11-27 Encounter Location Date Provider Diagnosis [address] [phone] [place] [address] 14 Nov, 2020 Shanelle Spain IMMUNIZATIONS Vaccine Route Administration Date Status COVID-19 dose #1 given elsewhere Unspecified Unknown May Administered Influenza 18 yrs & older Flublok IM Intramuscular Dec 16, 2019 Administered Depo-Provera 150mg/1mL Medroxy-Progestrone Acetate IM Intram uscular July 17, 2019 Administered SOCIAL HISTORY Tobacco Use: Social History Observation Description Date Details (start date - stop date) Never Smoker Sex Assigned At : Social History Observation Description Sex Assigned At Unknown Education: Question Answer Notes Level of Education: Not finished High School 12th grade stud ent Audit Question Answer Notes Total Score: 0 Interpretation: Alcohol Education Sikh: Question Answer Notes Sikh 33 None Drug and Alcohol Question Answer [...] B Complex - as directed Orally Active Vitamin D3 25 MCG (1000 UT) 1 capsule Orally Once a day for 30 day(s) Active Ketoconazole 2 % 1 application Externally Once a day to neck for 30 Active Vyvanse 20 MG 1 tab Orally Daily Act miguel busPIRone HCl 5 MG 2 tablets Orally once a day Active Dicyclomine HCl 20 MG 1 tablet Orally four times daily for 30 Days Active Probiotic - as directed Orally Activ e Triamcinolone Acetonide 0.1 % 1 application Externally Once a day at night for 14 days prn Aug, Active cloNIDine HCl 0.2 MG 1 tablet Orally three times a day Active Lexapro 20 MG 1 tablet Orally Once a day Active Nexplanon 68 MG as directed Subcutaneous Apr, Active Xyzal 5 MG 1 tablet in the evening Orally Once a day Active hydrOXYzine HCl 50 MG 1 tablet as needed Orally before bedtime Active Doxycycline Monohydrate 100 MG TAKE 1 CAPSULE BY MOUTH TWICE A DAY 30 Active Tretinoin 0.025 % 1 application (pea sized carrington unt) to face/neck Externally Once a day Active lamoTRIgine 100 MG Oral Active PROCEDURES No Information RESULTS No Results REASON FOR VISIT Advanced Allergy referral MEDICAL (GENERAL) HISTORY Type Description Date Medical History ADHD Medical History Dyslexia Medical History Allergies Medical History anxiety Medical History asthma Medical History sexual identity disorder Medical History Manic/depressive bipolar, ?borderline pe rsonality Medical History has been tested for autism s pectrum disorder but told he has OCD and ADHD Surgical History tubes ears Surgical History [facility] Hospitalization History [facility] 2019 Goals Section No Information Health Concerns No Information MEDICAL EQUIPMENT No Information MENTAL STATUS No Information FUNCTIONAL STATUS No Information ASSESSMENTS No Information PLAN OF TREATMENT Medication Medication Name Sig Start Date Stop Date Doxycycline Monohydrate 100 MG TAKE 1 CAPSULE BY MOUTH TWICE A D AY for 30 Next Appt Details Provider Name:Roxanna Acuna, 2021-04-19 09:00:00 AM, [address] [place] [address], , [place], [address], Provider Name:Donna Henderson, 2021-10-07 08:15:00 AM, [address] [facility], , [place], [address], Insurance Providers Payer Name Payer Address Payer Phone Insured Name Patient Relati onship to Insured Coverage Start Date Coverage End Date [facility]AN [facility] [address] [facility] [phone] NELL CABALLERO self
--- OUTSIDE RECORDS SUMMARY | 2021-02-23 08:00 | CCD ---
Author Author [facility] Organization [facility] [employer] [facility] Address Unknown Phone Unavailable Care Team Providers Care Radiology Equipment Servicer Name Role Phone Shanelle Spain Unavailable PROBLEMS Type Condition ICD9-CM Code [id number] Code Onset Dates Condition S tatus W/U Status Risk SNOMED Code Notes Problem Obesity (BMI 30.0-34.9) E66.9 Active confirmed 426036766077002 Problem Breakthrough bleeding N92.1 Active confirmed 69432504 Problem Other obsessive-compulsive disorders F42.8 Act miguel confirmed 376573047 Problem Sexual identity disorder F64.2 Active confirmed 046374993 Problem Seasonal allergies J30.2 Active confirmed 4 22365762 Problem Oligomenorrhea N91.5 Active confirmed 74393 004 Problem Other chronic pain G89.29 Active confirmed 8 8900936 Problem Irregular menses N92.6 Active confirmed 801 10630 Problem Anxiety F41.9 Active confirmed 15350956 Problem Bipolar 1 disorder F31.9 Active confirmed 3 89285185 Problem Multiple allergies Z88.9 Active confirmed 6 46252890 Problem Abnormal uterine bleeding (AUB) N93.9 Active confirmed 76483147484636 ALLERGIES Allergen (clinical drug ingredient) Drug/Non Drug Allergy do cumented on EMR Reaction Allergy Type Onset Date Status Seasonal Allergies Unknown Non Drug Allergy Active ENCOUNTERS from 2001 to 2020-12-05 Encounter Location Date Provider Diagnosis [address] [phone] [place] [address] Oct, Shanelle Spain Sexual identity disorder F64 .2 ; Other obsessive-compulsive disorders F42.8 ; Anxiety F41.9 ; Bipolar 1 disorder F31.9 ; Seasonal allergies J30.2 and Pain in left ankle and joints of left foot M25.572 IMMUNIZATIONS Vaccine Route Administration Date Status COVID-19 [...] Notes Total Score: 0 Interpretation: Alcohol Education Catholic: Question Answer Notes Catholic 33 None Drug and Alcohol Question Answer [...] never smoker never smoker REASON FOR REFERRAL from 2001 to 2020-12-05 Reason 20y/o with chronic ankle laureen n, saw Dr. Siddiqi years ago for this and is having pain again, please eval and treat Diagnosis 1 Pain in left ankle and joint s of left foot (M25.572) Referral Organization [facility] Salud Referring Provider First Name Shanelle Referring Provider Last Name Grabiel Referring Provider Specialty Family Medicine Referred Provider Mainor Siddiqi Referral Priority Routine General Notes Sae Padron 12/02/2020 4:26 :15 PM > Referral submitted online, referral ID# [id number], scanned into patient's chart, faSae Franco 12/02/2020 4:28:19 PM > Referral submitted online, referral ID # [id number], scanned into patient's chart,Sae Castillo 12/03/2020 1:13:50 PM > referral faxed Clinical Notes Fannie Bush 11/30/2020 7:28:29 AM > waiting on [facility], [facility] referral auth [employer] Weight 180 lbs Oct, Weight-kg 81.65 kg Oct, Height 66.5 in Oct, BMI 28.61 kg/m2 Oct, Heart Rate 97 /min Oct, Respiratory Rate 18 /min Oct, Temperature 98.2 degrees Fahrenheit Oct, Oximetry 100 Oct, Blood pressure systolic 126 mm Hg Oct, Blood pressure diastolic 70 mm Hg Oct, MEDICATIONS Medication SIG (Take, Route, Frequency, Duration) Notes Start Da te End Date Status Dicyclomine HCl 20 MG 1 tablet Orally four times daily for 30 Days Active Vitamin B Complex - as directed Orally Active cloNIDine HCl 0.2 MG 1 tablet [...] 100 MG Oral Active Ketoconazole 2 % 1 application Externally Once a day to neck for 30 Active Nexplanon 68 MG as directed Subcutaneous Apr, Active Doxycycline Monohydrate 100 MG TAKE 1 CAPSULE BY MOUTH TWICE A DAY fo 30 Active Xyzal 5 MG 1 tablet in the evening Orally Once a day Active Vitamin D3 25 MCG (1000 UT) 1 capsule Orally Once a day for 30 day(s) Active PROCEDURES No Information RESULTS No Results REASON FOR VISIT FOLLOW UP MEDICAL (GENERAL) HISTORY Type Description Date Medical History ADHD Medical History Dyslexia Medical History Allergies Medical History anxiety Medical History asthma Medical History sexual identity disorder Medical History Manic/depressive bipolar, ?borderline pe rsonality Medical History has been tested for autism s pectrum disorder but told he has OCD and ADHD Surgical History tubes ears Surgical History [facility]A Hospitalization History [facility] 2019 Goals Section No Information Health Concerns No Information MEDICAL EQUIPMENT No Information MENTAL STATUS No Information FUNCTIONAL STATUS No Information ASSESSMENTS Encounter Date Diagnosis Assessment Notes Treatment Notes Treatm ent Clinical Notes Oct, Sexual identity disorder (ICD-10 - F64.2) patient saw Dr. Joseph, she recommended that they focus on Zo's mental health for now and then they can discuss top surgery again in the future Oct, Other obsessive-compulsive disorders (ICD-10 - F 42.8) we discussed alternative places for therapy, patient is going to contact [facility] and [facility] Oct, Anxiety (ICD-10 - F41.9) as above Oct, Bipolar 1 disorder (ICD-10 - F31.9) as above Oct, Seasonal allergies (ICD-10 - J30.2) controlled on current regimen, patient gets allergy shots regularly Oct, Pain in left ankle and joints of left foot (ICD- 10 - M25.572) referral placed for patient to see Dr. Siddiqi Oct, Other Total time spen t with the patient on the day of the encounter: 25 minutes PLAN OF TREATMENT Medication Medication Name Sig Start Date Stop Date Dicyclomine HCl 20 MG 1 tablet Orally four times daily for 30 Da ys Doxycycline Monohydrate 100 MG TAKE 1 CAPSULE BY MOUTH TWICE A D AY for 30 Treatment Notes Assessment Notes Clinical Notes Sexual identity disorder patient saw Dr. Joseph, she recommended that they focus on Zo's mental health for now and then they can discuss top surgery again in the future Other obsessive-compulsive disorders we discussed alternative places for therapy, patient is going to contact [facility] Anxiety as above Bipolar 1 disorder as above Seasonal allergies controlled on curren t regimen, patient gets allergy shots regularly Pain in left ankle and joints of left foot referral placed for patient to see Dr. Siddiqi Referrals Referral Date Details 20y/o with chronic ankle laureen n, saw Dr. Siddiqi years ago for this and is having pain again, please eval and treat, Mainor Siddiqi Next Appt Details 6 Months Reason: Provider Name:Roxanna Acuna, 2021-04-19 09:00:00 AM, [address] [facility], , [place], [address], Provider Name:Donna Henderson, 2021-10-07 08:15:00 AM, [address] [facility], , [place], [address], Insurance Providers Payer Name Payer Address Payer Phone Insured Name Patient Relati onship to Insured Coverage Start Date Coverage End Date [facility] [address] [facility] [phone] NELL CABALLERO self
--- OUTSIDE RECORDS SUMMARY | 2021-02-23 08:00 | CCD ---
Author Author [facility] Organization [facility] Address Unknown Phone Unavailable Care Team Providers Care Parachute Packer Name Role Phone MyahPat bauman Unavailable PROBLEMS Type Condition ICD9-CM Code ZGY17-LH Code Onset Dates Condition S tatus W/U Status Risk SNOMED Code Notes Problem Obesity (BMI 30.0-34.9) E66.9 Active confirmed [id number] Problem Breakthrough bleeding N92.1 Active confirmed 15218346 Problem Other obsessive-compulsive disorders F42.8 Act miguel confirmed 137988909 Problem Sexual identity disorder F64.2 Active confirmed 415157288 Problem Seasonal allergies J30.2 Active confirmed 4 49461295 Problem Oligomenorrhea N91.5 Active confirmed 30338 004 Problem Other chronic pain G89.29 Active confirmed 8 5055082 Problem Irregular menses N92.6 Active confirmed 801 54867 Problem Anxiety F41.9 Active confirmed 00855750 Problem Bipolar 1 disorder F31.9 Active confirmed 3 39476870 Problem Multiple allergies Z88.9 Active confirmed 6 57826436 Problem Abnormal uterine bleeding (AUB) N93.9 Active confirmed 26166536920208 ALLERGIES Allergen (clinical drug ingredient) Drug/Non Drug Allergy do cumented on EMR Reaction Allergy Type Onset Date Status Seasonal Allergies Unknown Non Drug Allergy Active ENCOUNTERS from 2001 to 2020-12-02 Encounter Location Date Provider Diagnosis [address] [phone] [place] [address] Nov, Jennifer Lilly IMMUNIZATIONS Vaccine Route Administration Date Status COVID-19 [...] Notes Total Score: 0 Interpretation: Alcohol Education Christianity: Question Answer Notes Christianity 33 None Drug and Alcohol Question Answer [...] Information RESULTS No Results REASON FOR VISIT refill MEDICAL (GENERAL) HISTORY Type Description Date Medical History ADHD Medical History Dyslexia Medical History Allergies Medical History anxiety Medical History asthma Medical History sexual identity disorder Medical History Manic/depressive bipolar, ?borderline pe rsonality Medical History has been tested for autism s pectrum disorder but told he has OCD and ADHD Surgical History tubes ears Surgical History [facility]A Hospitalization History [facility] 2019 Goals Section No Information Health [...] for 30 Next Appt Details Provider Name:Roxanna Norberto Acuna, 2021-04-19 09:00:00 AM, [address] [place] [address], , [place], [address], Provider Name:Donna Henderson, 2021-10-07 08:15:00 AM, [address] [place] [address], , [place], [address], Insurance Providers Payer Name Payer Address Payer Phone Insured Name Patient Relati onship to Insured Coverage Start Date Coverage End Date [facility] [address] [facility] [address] [phone] NELL CABALLERO self
--- OUTSIDE RECORDS SUMMARY | 2021-02-23 08:00 | CCD | Continuity of Care Document ---
Author Author Shannon JIANG Organization Unknown Address [address], [place] [address] Phone [phone] Care Team Providers Care Weights And Measures Sealer Name Role Phone Marilee Winchester MD AUTM Unavailable Shanelle Spain AUTM [phone] Problems Active Problems Provider Date Allergic rhinitis due to pollen Onset: 0 10/18/2018 Note: On IT. 4+ reaction to tree pollen (maple) and ragweed pollen on scratch test. 4+ reaction to tree mix #2 and 3+ reaction to weeds on intradermal test. Allergic rhinitis due to house dust mite Onset: 10/18/2018 Note: On IT. 4+ reaction to dust mites o n scratch test. Allergic rhinitis caused by mold Julien [...] Status Reviewed: 12/03/20 Patient has never smoked Allergies, Adverse Reactions, Alerts Description No Known Drug Allergies Medications Active [...] mg) by oral route once daily Unknown Clonidine HCL 0.2mg Tablets take 1 tablet [...] Allergy Injection 2 Or More Injection Julien Jiagn M.D. 08/17/2020 Allergy Injection 2 Or More Injection Julien Jiang M.D. 07/27/2020 Allergy Injection 2 Or More Injection Julien Jiang M.D. 07/06/2020 Allergy Injection 2 Or More Injection Julien Jiang M.D. 06/16/2020 Allergy Injection 2 Or More Injection Julien Jiang M.D. 05/27/2020 Allergy Injection 2 Or More Injection Julien Evelyn M.DTonja 05/04/2020 Allergy Injection 2 Or More Injection Julien Evelyn M.DTonja 04/13/2020 Allergy Injection 2 Or More Injection Julien Evelyn, M.DTonja 03/30/2020 Allergy Injection 2 Or More Injection Julien Evelyn M.DTonja 03/09/2020 Allergy Injection 2 Or More Injection Julien Evelyn M.DTonja 02/17/2020 Allergy Injection 2 Or More Injection Julien Evelyn, M.DTonja 01/27/2020 Allergy Injection 2 Or More Injection Julien Evelyn M.DTonja 01/06/2020 Allergy Injection 2 Or More Injection Julien Valerie Jiang.DTonja 12/17/2019 Allergy Injection 2 Or More Injection Julienximena Jiang M.DTonja 11/22/2019 Allergy Injection 2 Or More Injection JulienValerie Norris.DTonja 11/04/2019 Allergy Injection 2 Or More Injection Julien Valerie Jiang.DTonja 10/14/2019 Allergy Injection 2 Or More Injection Julien Evelyn M.DTonja 09/24/2019 Allergy Injection 2 Or More Injection Julien Valerie Jiang.DTonja 09/02/2019 Allergy Injection 2 Or More Injection Julien Evelyn M.DTonja 08/14/2019 Allergy Injection 2 Or More Injection Julien Evelyn M.DTonja 07/22/2019 Allergy Injection 2 Or More Injection Julien Valerie Jiang.DTonja 07/01/2019 Allergy Injection 2 Or More Injection Julien Evelyn M.DTonja 06/11/2019 Allergy Injection 2 Or More Injection Julien Evelyn M.DTonja 05/20/2019 Allergy Injection 2 Or More Injection Julien Evelyn M.DTonja 05/01/2019 Allergy Injection 2 Or More Injection Julien Evelyn M.DTonja 04/05/2019 Allergy Injection 2 Or More Injection Kathiesonja Espinoza, LAST SAWYER-C 03/15/2019 Allergy Injection 2 Or More Injection JulienValerie Norris.DTonja 03/15/2019 Allergy Injection 2 Or More Injection Julien ChrTenisha garcia 02/25/2019 Allergy Injection 2 Or More Injection Julien Jiang M.D. 02/04/2019 Allergy Injection 2 Or More Injection Julien Jiang M.D. 01/14/2019 Allergy Injection 2 Or More Injection Julien Jiang M.D. 12/25/2018 Allergy Injection 2 Or More Injection MANUEL Jacobo-James 12/03/2018 Allergy Injection 2 Or More Injection [...] Information Available Procedures Date Code Description Status 11/24/2020 12720 Allergy Injection 2 Or More Comp leted 10/27/2020 56431 Allergy Injection 2 Or More Comp leted 10/26/2020 44921 Office/Outpatient Established Lo w MDM 20-29 Min Completed 10/26/2020 46340 Bronchodilation Resp onsiveness Spirometry Pre/Post Bronchodil Adm Completed 10/05/2020 59662 Allergy Injection 2 Or More Comp leted 09/15/2020 10872 Allergy Injection 2 Or More Comp leted 08/21/2020 35017 Allergy Antigens Single Or Multi ple Completed 08/17/2020 57820 Allergy Injection 2 Or More Comp leted 07/27/2020 55864 Allergy Injection 2 Or More Comp leted 07/06/2020 82023 Allergy Injection 2 Or More Comp leted 06/16/2020 72821 Allergy Injection 2 Or More Comp leted Medical Devices Description No Information Available Encounters Type Date Location Provider Dx Diagnosis Office Visit 10/26/2020 1:00p Main Office Julien Jiang M.D. J30.1 Allergic rhinitis due to pollen J30.89 Other allergic rhinitis J45.20 Mild intermittent asthma, un complicated Assessments Description No Information Available Plan of Treatment No Information Available Functional Status Description No Information Available Mental Status Description No Information Available Referrals Refer to Reason for Referral Status Appt Date Closed Created Julien Jiang M.D. Closed [address], [place] [address] [phone]
--- OUTSIDE RECORDS SUMMARY | 2021-02-23 08:00 | CCD ---
Author Author [facility] Organization [facility] Address Unknown Phone Unavailable Care Team Providers Care Oceanographer Geological Name Role Phone Shanelle Spain Unavailable PROBLEMS Type Condition ICD9-CM Code [id number] Code Onset Dates Condition S tatus W/U Status Risk SNOMED Code Notes Problem Obesity (BMI 30.0-34.9) E66.9 Active confirmed [id number] Problem Breakthrough bleeding N92.1 Active confirmed 56140585 Problem Other obsessive-compulsive disorders F42.8 Act miguel confirmed 365717131 Problem Sexual identity disorder F64.2 Active confirmed 446655974 Problem Seasonal allergies J30.2 Active confirmed 4 82099786 Problem Oligomenorrhea N91.5 Active confirmed 44854 004 Problem Other chronic pain G89.29 Active confirmed 8 6890814 Problem Irregular menses N92.6 Active confirmed 801 60436 Problem Anxiety F41.9 Active confirmed 89506738 Problem Bipolar 1 disorder F31.9 Active confirmed 3 01071986 Problem Multiple allergies Z88.9 Active confirmed 6 68960259 Problem Abnormal uterine bleeding (AUB) N93.9 Active confirmed [id number] ALLERGIES Allergen (clinical drug ingredient) Drug/Non Drug Allergy do cumented on EMR Reaction Allergy Type Onset Date Status Seasonal Allergies Unknown Non Drug Allergy Active ENCOUNTERS from 2001 to 2020-12-03 Encounter Location Date Provider Diagnosis [address] [phone] [place] [address] Nov, Shanelleakin Curtison IMMUNIZATIONS Vaccine Route Administration Date Status COVID-19 [...] Notes Total Score: 0 Interpretation: Alcohol Education Episcopal: Question Answer Notes [facility]iscopal 33 None Drug and Alcohol Question Answer [...] Surgical History T&A Hospitalization History [facility] 2019 Goals Section No Information [...] AY for 30 Next Appt Details Provider Name:Roxannacuba Acuna, 2021-04-19 09:00:00 AM, [address] [place] [address], , [place], [address], Provider Name:Donna Henderson, 2021-10-07 08:15:00 AM, [address] [facility], , [place], [address], Insurance Providers Payer Name Payer Address Payer Phone Insured Name Patient Relati onship to Insured Coverage Start Date Coverage End Date [facility] [facility] [address] [facility] [id number] NELL CABALLERO self
--- OUTSIDE RECORDS SUMMARY | 2021-02-23 08:00 | CCD | Continuity of Care Document ---
Author Author Shannon JIANG Organization Unknown Address [address], [place] [address] Phone [phone] Care Team Providers Care Molder Fitting Name Role Phone Marilee Winchester MD AUTM Unavailable Shanelle Spain AUTM [phone] Problems Active Problems Provider Date Allergic rhinitis [...] To 6 Hours as Needed 18units J45.30 uJlien Jiang M.D. 12/11/2018 Levocetirizine Dihydrochloride 5mg Tablets [...] 2 Or More Injection Julien Evelyn M.DTonja 07/06/2020 Allergy Injection 2 Or More Injection Julien Evelyn M.DTonja 06/16/2020 Allergy Injection 2 Or More Injection Julien Evelyn, M.DTonja 05/27/2020 Allergy Injection 2 Or More Injection Julien Evelyn M.DTonja 05/04/2020 Allergy Injection 2 Or More Injection Julien Evelyn M.DTonja 04/13/2020 Allergy Injection 2 Or More Injection Julien Chrjose, M.DTonja 03/30/2020 Allergy Injection 2 Or More Injection Julien Valerie Jiang.Jaziel 03/09/2020 Allergy Injection 2 Or More Injection Julien Valerie Jiang.DTonja 02/17/2020 Allergy Injection 2 Or More Injection Julien Evelyn M.DTonja 01/27/2020 Allergy Injection 2 Or More Injection JulienValerie Norris.Jaziel 01/06/2020 Allergy Injection 2 Or More Injection Julien Evelyn M.DTonja 12/17/2019 Allergy Injection 2 Or More Injection Julien Evelyn M.DTonja 11/22/2019 Allergy Injection 2 Or More Injection JulienValerie Norris.DTonja 11/04/2019 Allergy Injection 2 Or More Injection Julien Evelyn, M.DTonja 10/14/2019 Allergy Injection 2 Or More Injection Julien Evelyn M.DTonja 09/24/2019 Allergy Injection 2 Or More Injection Julien Evelyn M.DTonja 09/02/2019 Allergy Injection 2 Or More Injection Julien Chrjose, M.DTonja 08/14/2019 Allergy Injection 2 Or More Injection Julien Evelyn M.DTonja 07/22/2019 Allergy Injection 2 Or More Injection Julien Evelyn, M.DTonja 07/01/2019 Allergy Injection 2 Or More Injection Julien Yoshiostyasmeen, M.DTonja 06/11/2019 Allergy Injection 2 Or More Injection Julien Evelyn M.DTonja 05/20/2019 Allergy Injection 2 Or More Injection Julien Evelyn, M.DTonja 05/01/2019 Allergy Injection 2 Or More Injection Julien Chrostowski, M.D. 04/05/2019 Allergy Injection 2 Or More [...] Information Available Procedures Date Code Description Status 01/23/2021 18318 Allergy Injection 2 Or More Comp leted 12/28/2020 36614 Allergy Injection 2 Or More Comp leted 12/09/2020 29442 Allergy Injection 2 Or More Comp leted 12/03/2020 69101 Allergy Tests Intrad ermal W/ Allergenic Extr Immediate Reaction Completed 12/03/2020 15546 Allergy Tests Percutaneous W/ Al lergenic Extracts Completed 11/24/2020 28796 Allergy Injection 2 Or More Comp leted 10/27/2020 72721 Allergy Injection 2 Or More Comp leted 10/26/2020 30857 Office/Outpatient Established Lo w MDM 20-29 Min Completed 10/26/2020 07730 Bronchodilation Resp onsiveness Spirometry Pre/Post Bronchodil Adm Completed 10/05/2020 23390 Allergy Injection 2 Or More Comp leted 09/15/2020 63020 Allergy Injection 2 Or More Comp leted 08/21/2020 69289 Allergy Antigens Single Or Multi ple Completed 08/17/2020 01734 Allergy Injection 2 Or More Comp leted 07/27/2020 71270 Allergy Injection 2 Or More Comp leted Medical Devices Description No Information Available Encounters Type Date Location Provider Dx Diagnosis Office Visit 10/26/2020 1:00p Main Office Julien Jiang M.D. J30.1 Allergic rhinitis due to pollen J30.89 Other allergic rhinitis J45.20 Mild intermittent asthma, un complicated Assessments Date Code Description Provider 01/23/2021 J30.1 Allergic rhinitis due to pollen Julien Jiang M.D. 01/23/2021 J30.89 Other allergic rhinitis Julien Jiang M.D. Plan of Treatment Future Appointment(s):* 02/16/2021 1:50 pm - Allergy Injection at Main Office [...]
--- OUTSIDE RECORDS SUMMARY | 2021-02-23 08:00 | CCD | Continuity of Care Document ---
Author Author Shannon JIANG Organization Unknown Address [address], [address], [place] [address] Phone [phone] Care Team Providers Care Risk Control Product Liability Director Name Role Phone Marilee Winchester MD AUTM Unavailable Shanelle Spain AUTM [phone] Problems Active Problems Provider Date Allergic rhinitis [...] 03/30/2020 Allergy Injection 2 Or More Injection Julienximena Jiang M.DTonja 03/09/2020 Allergy Injection 2 Or More [...] 2 Or More Injection Julien Evelyn M.DTonja 10/14/2019 Allergy Injection 2 Or More Injection Julien Evelyn M.DTonja 09/24/2019 Allergy Injection 2 Or More Injection Julienximena Jiang M.DTonja 09/02/2019 Allergy Injection 2 Or More Injection Julien Evelyn, M.DTonja 08/14/2019 Allergy Injection 2 Or More Injection Julienximena Jiang M.DTonja 07/22/2019 Allergy Injection 2 Or More Injection Julien Evelyn M.DTonja 07/01/2019 Allergy Injection 2 Or More Injection Julien Chrjose, M.DTonja 06/11/2019 Allergy Injection 2 Or More Injection Julien Evelyn M.DTonja 05/20/2019 Allergy Injection 2 Or More Injection Julien Evelyn, M.DTonja 05/01/2019 Allergy Injection 2 Or More Injection Julien Evelyn, M.DTonja 04/05/2019 Allergy Injection 2 Or More Injection Kathiesonja Espinoza, [employer]-C 03/15/2019 Allergy Injection 2 Or More Injection Julien Evelyn, M.DTonja 03/15/2019 Allergy Injection 2 Or More Injection Julien Chrostyasmeen, M.D. 02/25/2019 Allergy Injection 2 Or More [...] Information Available Procedures Date Code Description Status 12/03/2020 23948 Allergy Tests Intrad ermal W/ Allergenic Extr Immediate Reaction Completed 12/03/2020 75026 Allergy Tests Percutaneous W/ Al lergenic Extracts Completed 11/24/2020 92380 Allergy Injection 2 Or More Comp leted 10/27/2020 64305 Allergy Injection 2 Or More Comp leted 10/26/2020 59604 Office/Outpatient Established Lo w MDM 20-29 Min Completed 10/26/2020 91773 Bronchodilation Resp onsiveness Spirometry Pre/Post Bronchodil Adm Completed 10/05/2020 08203 Allergy Injection 2 Or More Comp leted 09/15/2020 77235 Allergy Injection 2 Or More Comp leted 08/21/2020 06076 Allergy Antigens Single Or Multi ple Completed 08/17/2020 90432 Allergy Injection 2 Or More Comp leted 07/27/2020 25355 Allergy Injection 2 Or More Comp leted 07/06/2020 20669 Allergy Injection 2 Or More Comp leted 06/16/2020 47220 Allergy Injection 2 Or More Comp leted Medical Devices Description No Information Available Encounters Type Date Location Provider Dx Diagnosis Office Visit 10/26/2020 1:00p Main Office Julien Jiang M.D. J30.1 Allergic rhinitis due to pollen J30.89 Other allergic rhinitis J45.20 Mild intermittent asthma, un complicated Assessments Date Code Description Provider 12/03/2020 Z01.82 Encounter for allergy testing Da autumn Jiang M.D. 12/03/2020 J30.1 Allergic rhinitis due to pollen Julien Jiang M.D. 12/03/2020 J30.89 Other allergic rhinitis Julien Jiang M.D. [...] Date Closed Created Julien Jiang M.D. Closed [address] [place] [address] [phone]
--- OUTSIDE RECORDS SUMMARY | 2021-02-23 08:00 | CCD | Continuity of Care Document ---
Author Author Shannon JIANG Organization Unknown Address [address], [address], [place] [address] Phone [phone] Care Team Providers Care Chemist Intern Name Role Phone Marilee Winchester MD AUTM Unavailable Shanelle Spain AUTM [phone] Problems Active Problems Provider Date Allergic rhinitis [...] 06/16/2020 Allergy Injection 2 Or More Injection JulienValerie Norris.DTonja 05/27/2020 Allergy Injection 2 Or More Injection Julienximena Jiang M.DTonja 05/04/2020 Allergy Injection 2 Or More Injection Julienximena Jiang, M.DTonja 04/13/2020 Allergy Injection 2 Or More Injection Julienximena Jiang M.DTonja 03/30/2020 Allergy Injection 2 Or More Injection JulienValerie Norris.DTonja 03/09/2020 Allergy Injection 2 Or More Injection Julien Evelyn M.DTonja 02/17/2020 Allergy Injection 2 Or More Injection Julien Valerie Jiang.DTonja 01/27/2020 Allergy Injection 2 Or More Injection Julienximena Jiang M.DTonja 01/06/2020 Allergy Injection 2 Or More Injection Julienximena Jiang M.DTonja 12/17/2019 Allergy Injection 2 Or More Injection JulienValerie Norris.Jaziel 11/22/2019 Allergy Injection 2 Or More Injection Julien Evelyn M.DTonja 11/04/2019 Allergy Injection 2 Or More Injection Julien Evelyn M.DTonja 10/14/2019 Allergy Injection 2 Or More Injection JulienValerie Norris.DTonja 09/24/2019 Allergy Injection 2 Or More Injection Julien Evelyn, M.DTonja 09/02/2019 Allergy Injection 2 Or More Injection Julienximena Jiang M.DTonja 08/14/2019 Allergy Injection 2 Or More [...] 04/05/2019 Allergy Injection 2 Or More Injection KADIE PeñaP-C 03/15/2019 Allergy Injection 2 Or More Injection Julien Chrostowski, M.D. 03/15/2019 Allergy Injection 2 Or More [...] Information Available Procedures Date Code Description Status 12/09/2020 04802 Allergy Injection 2 Or More Comp leted 12/03/2020 72880 Allergy Tests Intrad ermal W/ Allergenic Extr Immediate Reaction Completed 12/03/2020 94806 Allergy Tests Percutaneous W/ Al lergenic Extracts Completed 11/24/2020 94744 Allergy Injection 2 Or More Comp leted 10/27/2020 06377 Allergy Injection 2 Or More Comp leted 10/26/2020 79400 Office/Outpatient Established Lo w MDM 20-29 Min Completed 10/26/2020 27877 Bronchodilation Resp onsiveness Spirometry Pre/Post Bronchodil Adm Completed 10/05/2020 86780 Allergy Injection 2 Or More Comp leted 09/15/2020 49093 Allergy Injection 2 Or More Comp leted 08/21/2020 62496 Allergy Antigens Single Or Multi ple Completed 08/17/2020 85649 Allergy Injection 2 Or More Comp leted 07/27/2020 73646 Allergy Injection 2 Or More Comp leted 07/06/2020 58414 Allergy Injection 2 Or More Comp leted 06/16/2020 43591 Allergy Injection 2 Or More Comp leted Medical Devices Description No Information Available Encounters Type Date Location Provider Dx Diagnosis Office Visit 10/26/2020 1:00p Main Office Julien Jiang M.D. J30.1 Allergic rhinitis due to pollen J30.89 Other allergic rhinitis J45.20 Mild intermittent asthma, un complicated Assessments Date Code Description Provider 12/09/2020 J30.1 Allergic rhinitis due to pollen Julien Jiang M.D. 12/09/2020 J30.89 Other allergic rhinitis Julien Jiang M.D. [...] Date Closed Created Julien Jiang M.D. Closed [address] [place] [address] [phone]
--- OUTSIDE RECORDS SUMMARY | 2021-02-23 08:01 | CCD ---
Author Author [facility] Organization [facility] Address Unknown Phone Unavailable Care Team Providers Care Dental Tech Name Role Phone Yolanda Vences Unavailable Yolanda Vences Unavailable PANCHO JIANG MD Unavailable Unavailable PANCHO JIANG MD Unavailable Unavailable PANCHO JIANG MD Unavailable Unavailable PANCHO JIANG MD Unavailable Unavailable PANCHO JIANG MD Unavailable Unavailable PANCHO JIANG MD Unavailable Unavailable PANCHO JIANG MD Unavailable Unavailable PANCHO JIANG MD Unavailable Unavailable PANCHO JIANG MD Unavailable Unavailable PANCHO JIANG MD Unavailable Unavailable PANCHO JIANG MD Unavailable Unavailable PANCHO JIANG MD Unavailable Unavailable PANCHO JIANG MD Unavailable Unavailable PANCHO JIANG MD Unavailable Unavailable PANCHO JIANG MD Unavailable Unavailable PANCHO JIANG MD Unavailable Unavailable PANCHO JIANG MD Unavailable Unavailable PANCOH JIANG MD Unavailable Unavailable PANCHO JIANG MD Unavailable Unavailable PANCHO JIANG MD Unavailable Unavailable CHROSTOWSKIJOSELUISPANCHO MD Unavailable Unavailable CHROSTOWSKIJOSELUISPANCHO MD Unavailable Unavailable CHROSTOWSKI, PANCHO MD Unavailable Unavailable CHROSTOWSKI, PANCHO MD Unavailable Unavailable CHROSTOWSKI, PANCHO MD Unavailable Unavailable CHROSTOWSKI, PANCHO MD Unavailable Unavailable CHROSTOWSKI, PANCHO MD Unavailable Unavailable CHROSTOWSKI, PANCHO MD Unavailable Unavailable CHROSTOWSKI, PANCHO MD Unavailable Unavailable CHROSTOWSKI, PANCHO MD Unavailable Unavailable CHROSTOWSKI, PANCHO MD Unavailable Unavailable CHROSTOWSKI, PANCHO MD Unavailable Unavailable CHROSTOWSKI, PANCHO MD Unavailable Unavailable CHROSTOWSKI, PANCHO MD Unavailable Unavailable CHROSTOWSKI, PANCHO MD Unavailable Unavailable CHROSTOWSKI, APNCHO MD Unavailable Unavailable CHROSTOWSKI, PANCHO MD Unavailable Unavailable CHROSTOWSKI, PANCHO MD Unavailable Unavailable CHROSTOWSKI, PANCHO MD Unavailable Unavailable Kozacka, Domi Unavailable Kozacka, Domi Unavailable JOSELIN, E ZEKE DO Unavailable Unavailable JOSELIN, E ZEKE DO Unavailable Unavailable JOSELIN, E ZEKE DO Unavailable Unavailable JOSELIN, E ZEKE DO Unavailable Unavailable JOSELIN, E ZEKE DO Unavailable Unavailable JOSELIN, E ZEKE DO Unavailable Unavailable JOSELIN, E ZEKE DO Unavailable Unavailable JOSELIN, E ZEKE DO Unavailable Unavailable JOSELIN, E ZEKE DO Unavailable Unavailable JOSELIN, E ZEKE DO Unavailable Unavailable JOSELIN, E ZEKE DO Unavailable Unavailable JOSELIN, E ZEKE DO Unavailable Unavailable JOSELIN, E ZEKE DO Unavailable Unavailable JOSELIN, E ZEKE DO Unavailable Unavailable JOSELIN, E ZEKE DO Unavailable Unavailable JOSELIN, E ZEKE DO Unavailable Unavailable JOSELIN, E ZEKE DO Unavailable Unavailable JOSELIN, E ZEKE DO Unavailable Unavailable JOSELIN, E ZEKE DO Unavailable Unavailable JOSELIN, E ZEKE DO Unavailable Unavailable JOSELIN, E ZEKE DO Unavailable Unavailable JOSELIN, E ZEKE DO Unavailable Unavailable JOSELIN, E ZEKE DO Unavailable Unavailable JOSELIN, E ZEKE DO Unavailable Unavailable STERLING CABRERA Unavailable Unavailable Josue WALLER MD Unavailable Unavailable Josue WALLER MD Unavailable Unavailable Josue WALLER MD Unavailable Unavailable Josue WALLER MD Unavailable Unavailable Josue WALLER MD Unavailable Unavailable Josue WALLER MD Unavailable Unavailable Josue WALLER MD Unavailable Unavailable Josue WALLER MD Unavailable Unavailable Josue WALLER MD Unavailable Unavailable Josue WALLER MD Unavailable Unavailable Josue WALLER MD Unavailable Unavailable Josue WALLER MD Unavailable Unavailable Josue WALLER MD Unavailable Unavailable Josue WALLER MD Unavailable Unavailable Josue WALLER MD Unavailable Unavailable Josue WALLER MD Unavailable Unavailable Josue WALLER MD Unavailable Unavailable Josue WALLER MD Unavailable Unavailable Josue WALLER MD Unavailable Unavailable Josue WALLER MD Unavailable Unavailable Josue WALLER MD Unavailable Unavailable Josue WALLER MD Unavailable Unavailable Josue WALLER MD Unavailable Unavailable Josue WALLER MD Unavailable Unavailable Josue WALLER MD Unavailable Unavailable Josue WALLER MD Unavailable Unavailable Josue WALLER MD Unavailable Unavailable Josue WALLER MD Unavailable Unavailable Josue WALLER MD Unavailable Unavailable Josue WALLER MD Unavailable Unavailable Josue WALLER MD Unavailable Unavailable Josue WALLER MD Unavailable Unavailable Josue WALLER MD Unavailable Unavailable Josue WALLER MD Unavailable Unavailable DESJARLAIS, ARTURO HR RECEPTIONIST Unavailable Unavailable DESJARLAIS, ARTURO HR RECEPTIONIST Unavailable Unavailable DESJARLAIS, ARTURO HR RECEPTIONIST Unavailable Unavailable DESJARLAIS, ARTURO HR RECEPTIONIST Unavailable Unavailable DESJARLAIS, ARTURO HR RECEPTIONIST Unavailable Unavailable DESJARLAIS, ARTURO HR RECEPTIONIST Unavailable Unavailable DESJARLAIS, ARTURO HR RECEPTIONIST Unavailable Unavailable DESJARLAIS, ARTURO HR RECEPTIONIST Unavailable Unavailable DESJARLAIS, ARTURO HR RECEPTIONIST Unavailable Unavailable DESJARLAIS, ARTURO HR RECEPTIONIST Unavailable Unavailable Sunny VENCES Unavailable Unavailable Re-disclosure Warning The records that you are about to access may contain information from federally-assisted alcohol or drug abuse programs. If such information is present, then the following federally mandated warning applies: This information has been disclosed to you from records protected by federal confidentiality rules (42 CFR part 2). The federal rules prohibit you from making any further disclosure of this information unless further disclosure is expressly permitted by the written consent of the person to whom it pertains or as otherwise permitted by 42 CFR part 2. A general authorization for the release of medical or other information is NOT sufficient for this purpose. The Federal rules restrict any use of the information to criminally investigate or prosecute any alcohol or drug abuse patient.The records that you are about to access may contain highly sensitive health information, the redisclosure of which is protected by Article 27-F of the [place] Public [employer] law. If you continue you may have access to information: Regarding HIV / AIDS; Provided by facilities licensed or operated by the [place] Office of Mental Health; or Provided by the [place] Office for People With Developmental Disabilities. If such information is present, then the following [place] mandated warning applies: This information has been disclosed to you from confidential records which are protected by state law. State law prohibits you from making any further disclosure of this information without the specific written consent of the person to whom it pertains, or as otherwise permitted by law. Any unauthorized further disclosure in violation of state law may result in a fine or correction sentence or both. A general authorization for the release of medical or other information is NOT sufficient authorization for further disc losure. Family History Family Member Name Family Member Gender Family Member Status Date o f Status Description Data Source(s) Unknown Unknown Problem [facility] ([facility] Maternal aunt. Unknown Female Problem [facility] ([facility]) Unknown Female Unknown Unknown Problem MED[facility] ([facility]) maternal aunt Encounters Encounter Providers Location Date Indications Data Source(s ) [place] [address] [facility] [facility] [address] 02/16/2021 12:00:00 AM EST eCW1 ([facility]) [place] [address] [facility] [place] [address] 02/16/2021 12:00:00 AM EST eCW1 ([facility]) [place] [address] [facility] [place] [address] 02/12/2021 12:00:00 AM EST eCW1 [facility]) Outpatient Attender: Domi Abdul 02/09/2021 10:01:00 AM [facility] Outpatient Attender: ARTURO JON NP 01/29/2021 11: 39:00 AM [facility] Outpatient [facility] 01/29/2021 12:00:00 AM EST eCW1 ([facility]) Outpatient Attender: Domi Abdul 01/25/2021 09:50:00 AM [facility] [place] [address] [facility] [facility] [address] 01/15/2021 12:00:00 AM EDT eCW1 ([facility]) Outpatient Attender: Domi Abdul 01/11/2021 10:00:00 AM [facility] Outpatient Attender: Domi Abdul 12/31/2020 06:00:00 PM [facility] Outpatient Attender: ARTURO JON NP 12/29/2020 09: 37:00 AM [facility] [place] [address] [facility] [facility] [address] 12/02/2020 12:00:00 AM EDT eCW1 ([facility]) [place] [address] [facility] [facility] [address] 11/30/2020 12:00:00 AM EDT [facility] Outpatient Attender: ARTURO JON NP 11/26/2020 11: 45:00 AM [facility] Outpatient Attender: Yolanda Vences 11/25/2020 04:00:00 PM [facility] Unknown [address] [facility] [address] 11/24/2020 12:00:00 AM EDT eCW1 ([facility]) [place] [address] [facility] [facility] [address] 11/13/2020 12:00:00 AM EDT eCW1 ([facility]) [place]patient [address] [facility] [facility] [address] 11/09/2020 12:00:00 AM EDT eCW1 ([facility]) Outpatient Attender: Yolanda Vences 10/30/2020 04:00:00 PM [facility] Outpatient Attender: PANCHO JIANG MD Main Office 10/26/2020 01:00:00 PM EDT MED[facility] ([facility]) Outpatient Attender: Yolanda Vences 10/14/2020 11:00:00 AM [facility] Outpatient [facility] 10/12/2020 12:00:00 AM EDT eCW1 ([facility]) [place] [address] [facility] [address] 10/07/2020 12:00:00 AM EDT eCW1 ([facility]) [place] [address] [facility] [facility] [address] 10/06/2020 12:00:00 AM EDT eCW1 ([facility]) [place] [address] [facility] [facility] [address] 10/05/2020 12:00:00 AM EDT eCW1 ([facility]) Outpatient Attender: ARTURO JON NP 09/24/2020 01: 32:00 PM [facility] Outpatient Attender: Yolanda Vences 09/16/2020 02:00:00 PM [facility] Outpatient Attender: ZEKE Stevenson/Deirdre/Alfa/Omer albright 09/07/2020 03:30:00 PM EDT MEDENT ([facility]) [place] [address] [facility] [facility] [address] 08/26/2020 12:00:00 AM EDT eCW1 ([facility]) [place] [address] [facility] [facility] [address] 08/26/2020 12:00:00 AM EDT eCW1 ([facility]) [place]patient [address] [facility] [facility] [address] 08/13/2020 12:00:00 AM EDT eCW1 ([facility]) Outpatient Attender: Yolanda Vences 08/07/2020 11:00:00 AM [facility] Outpatient [address] [facility] [facility] [address] 07/30/2020 12:00:00 AM EDT eCW1 ([facility]) Outpatient Attender: ARTURO JON NP 07/23/2020 08: 45:00 AM [facility] Outpatient Attender: Yolanda Vences 07/07/2020 11:00:00 AM [facility] Outpatient Attender: YOLANDA VENCES 06/23/2020 01:00:00 PM [facility] Outpatient Attender: ARTURO JON NP 06/16/2020 09: 57:00 AM [facility] Unknown [address] [facility] [facility] [address] 06/15/2020 12:00:00 AM EDT eCW1 ([facility]) [place] [address] [facility] [facility] [address] 06/11/2020 12:00:00 AM EDT eCW1 ([facility]) [place]patient [address] [facility] [facility] [address] 06/10/2020 12:00:00 AM T eCW1 ([facility]) Outpatient Attender: YOLANDA VENCES 06/09/2020 11:00:00 AM [facility] Outpatient Attender: YOLANDA VENCES 05/28/2020 11:00:00 AM [facility] Admission cancelled. Disregard status an d admitted date. Outpatient Attender: YOLANDA VENCES 05/21/2020 10:00:00 AM [facility] Outpatient Attender: LUCIA Esquivel/Deirdre/Vikash rahman/Onesimo 05/20/2020 07:50:00 AM EST MEDENT ([facility]) Outpatient Attender: ARTURO JON NP 05/19/2020 10: 32:00 AM [facility] Outpatient Attender: YOLANDA VENCES 05/14/2020 11:00:00 AM [facility] Outpatient Attender: YOLANDA VENCES 05/07/2020 11:00:00 AM [facility] Outpatient [address] [facility] [facility] [address] 05/04/2020 12:00:00 AM EST eCW1 [facility]) [place] [address] [facility] [facility] [address] 05/01/2020 12:00:00 AM EST eCW1 ([facility]) Outpatient Attender: ARTURO JON NP 04/21/2020 10: 00:00 AM [facility] Outpatient Attender: YOLANDA VENCES 04/20/2020 01:00:00 PM [facility] Outpatient Attender: YOLANDA VENCES 04/09/2020 11:00:00 AM [facility] Outpatient [address] [facility] [facility] [address] 04/09/2020 12:00:00 AM EST eCW1 ([facility]) Outpatient Attender: ARTURO JON NP 03/24/2020 10: 39:00 AM [facility] Outpatient Attender: YOLANDA VENCES 03/11/2020 02:00:00 PM [facility] Outpatient [address] [facility] [facility] [address] 03/09/2020 12:00:00 AM EST eCW1 ([facility]) [place] [address] [facility] [facility] [address] 03/09/2020 12:00:00 AM EST eCW1 ([facility]) Outpatient Attender: YOLANDA VENCES 03/04/2020 11:00:00 AM [facility] [place] [address] [facility] [facility] [address] 02/25/2020 12:00:00 AM EST eCW1 ([facility]) [place] [address] [facility] [facility] [address] 02/25/2020 12:00:00 AM EST eCW1 ([facility]) Outpatient Attender: YOLANDA VENCES 02/21/2020 10:00:00 AM [facility] Outpatient Attender: ARTURO JON NP 02/20/2020 04: 20:00 PM [facility] Outpatient Attender: YOLANDA VENCES 02/07/2020 01:00:00 PM [facility] Outpatient Attender: YOLANDA VENCES 01/29/2020 01:00:00 PM [facility] Outpatient Attender: YOLANDA VENCES 01/23/2020 11:00:00 AM [facility] Outpatient Attender: ARTURO JON NP 01/21/2020 10: 58:00 AM [facility] Outpatient Attender: YOLANDA VENCES 01/17/2020 04:00:00 PM [facility] ([facility]) [facility] Procedure [address] [place] [address] 01/14/2020 12:00:00 AM EST eCW1 ([facility]) Outpatient Attender: YOLANDA VENCES 01/09/2020 10:00:00 AM [facility] Outpatient Attender: MARISABEL CABRERA 12/27/2019 11:00:00 AM E [facility] Outpatient Attender: MARISABEL CABRERA 12/11/2019 11:42:00 AM [facility] Outpatient Attender: ARTURO JON NP 12/05/2019 01: 40:00 PM [facility] Immunizations Vaccine Date Status Description Data Source(s) COVID-19 VACCINE [place] 06/10/2020 12:00:00 AM EDT completed [employer] Vaccine Series Complete: YESThis Data wa s Submitted to [facility] Via [employer]. COVID-19 dose #1 given elsewhere Unspecified 06/09/2020 09:3 7:00 AM EDT completed eCW1 ([facility]) COVID-19 dose #1 given elsewhere Unspecified 06/09/2020 09:3 7:00 AM EDT completed eCW1 ([facility]) COVID-19 dose #1 given elsewhere Unspecified 06/09/2020 09:3 7:00 AM EDT completed eCW1 ([facility]) COVID-19 dose #1 given elsewhere Unspecified 06/09/2020 09:3 7:00 AM EDT completed eCW1 ([facility]) COVID-19 dose #1 given elsewhere Unspecified 06/09/2020 09:3 7:00 AM EDT completed eCW1 ([facility]) COVID-19 dose #1 given elsewhere Unspecified 06/09/2020 09:3 7:00 AM EDT completed eCW1 ([facility]) COVID-19 dose #1 given elsewhere Unspecified 06/09/2020 09:3 7:00 AM EDT completed eCW1 ([facility]) COVID-19 dose #1 given elsewhere Unspecified 06/09/2020 09:3 7:00 AM EDT completed eCW1 ([facility]) COVID-19 dose #1 given elsewhere Unspecified 06/09/2020 09:3 7:00 AM EDT completed eCW1 ([facility]) COVID-19 dose #1 given elsewhere Unspecified 06/09/2020 09:3 7:00 AM EDT completed eCW1 ([facility]) COVID-19 dose #1 given elsewhere Unspecified 06/09/2020 09:3 7:00 AM EDT completed eCW1 ([facility]) COVID-19 dose #1 given elsewhere Unspecified 06/09/2020 09:3 7:00 AM EDT completed eCW1 ([facility]) COVID-19 dose #1 given elsewhere Unspecified 06/09/2020 09:3 7:00 AM EDT completed eCW1 ([facility]) COVID-19 dose #1 given elsewhere Unspecified 06/09/2020 09:3 7:00 AM EDT completed eCW1 ([facility]) COVID-19 dose #1 given elsewhere Unspecified 06/09/2020 09:3 7:00 AM EDT completed eCW1 ([facility]) COVID-19 dose #1 given elsewhere Unspecified 06/09/2020 09:3 7:00 AM EDT completed eCW1 ([facility]) Medications Medication Brand Name Start Date Product Form Dose Route Admi nistrative Instructions Pharmacy Instructions Status Indications Reaction Description Data Source(s) Allergy Injection 2 Or More 02/16/2021 12:00:00 AM EST completed [facility] ([facility]) Medication administered onsite Allergy Injection 2 Or More 01/23/2021 12:00:00 AM EST completed [facility] ([facility]) Medication administered onsite lisdexamfetamine dimesylate 20 MG Oral Capsule [Vyvans e] Vyvanse 20 MG Vyvanse 20 MG 12/29/2020 12:00:00 AM EDT 1.0 {capsule_in_the_morning} active Vyvanse 20 MG eCW1 ([facility]) Allergy Injection 2 Or More 12/28/2020 12:00:00 AM EDT completed [facility] ([facility]) Medication administered onsite Allergy Injection 2 Or More 12/09/2020 12:00:00 AM EDT completed [facility] ([facility]) Medication administered onsite Allergy Injection 2 Or More 11/24/2020 12:00:00 AM EDT completed [facility] ([facility]) Medication administered onsite Allergy Injection 2 Or More 10/27/2020 12:00:00 AM EDT completed [facility] ([facility]) Medication administered onsite Flonase Allergy Relief Flonase Allergy Relief 10/26/2020 12:00:00 AM E DT active [facility] ([facility] Allergy Injection 2 Or More 10/05/2020 12:00:00 AM EDT completed [facility] ([facility]) Medication administered onsite lisdexamfetamine dimesylate 20 MG Oral Capsule [Vyvans e] Vyvanse 20 MG Vyvanse 20 MG 10/02/2020 12:00:00 AM EDT 1.0 {capsule_in_the_morning} active Vyvanse 20 MG eCW1 ([facility]) Allergy Injection 2 Or More 09/15/2020 12:00:00 AM EDT completed [facility] ([facility]) Medication administered onsite Allergy Injection 2 Or More 08/17/2020 12:00:00 AM EDT completed [facility] ([facility]) Medication administered onsite Triamcinolone Acetonide 1 MG/ML Topical Cream Triamcin olone Acetonide 0.1 % Triamcinolone Acetonide 0.1 % 08/13/2020 12:00:00 AM EDT 1.0 {appli cation} active Triamcinolone Acetonide 0 .1 % eCW1 ([facility]) Triamcinolone Acetonide 1 MG/ML Topical Cream Triamcin olone Acetonide 0.1 % Triamcinolone Acetonide 0.1 % 08/13/2020 12:00:00 AM EDT 1.0 {appli cation} active Triamcinolone Acetonide 0 .1 % eCW1 ([facility]) Triamcinolone Acetonide 1 MG/ML Topical Cream Triamcin olone Acetonide 0.1 % Triamcinolone Acetonide 0.1 % 08/13/2020 12:00:00 AM EDT 1.0 {appli cation} active Triamcinolone Acetonide 0 .1 % eCW1 ([facility]) Ketoconazole 20 MG/ML Topical Cream Ketoconazole 2 % Ketocon azole 2 % 08/13/2020 12:00:00 AM EDT 1.0 {application} active Ketoconazole 2 % eCW1 ([facility]) Ketoconazole 20 MG/ML Topical Cream Ketoconazole 2 % Ketocon azole 2 % 08/13/2020 12:00:00 AM EDT 1.0 {application} active Ketoconazole 2 % eCW1 ([facility]) Triamcinolone Acetonide 1 MG/ML Topical Cream Triamcin olone Acetonide 0.1 % Triamcinolone Acetonide 0.1 % 08/13/2020 12:00:00 AM EDT 1.0 {appli cation} active Triamcinolone Acetonide 0 .1 % eCW1 ([facility]) Triamcinolone Acetonide 1 MG/ML Topical Cream Triamcin olone Acetonide 0.1 % Triamcinolone Acetonide 0.1 % 08/13/2020 12:00:00 AM EDT 1.0 {appli cation} active Triamcinolone Acetonide 0 .1 % eCW1 ([facility]) Triamcinolone Acetonide 1 MG/ML Topical Cream Triamcin olone Acetonide 0.1 % Triamcinolone Acetonide 0.1 % 08/13/2020 12:00:00 AM EDT 1.0 {appli cation} active Triamcinolone Acetonide 0 .1 % eCW1 ([facility]) Triamcinolone Acetonide 1 MG/ML Topical Cream Triamcin olone Acetonide 0.1 % Triamcinolone Acetonide 0.1 % 08/13/2020 12:00:00 AM EDT 1.0 {appli cation} active Triamcinolone Acetonide 0 .1 % eCW1 ([facility]) Triamcinolone Acetonide 1 MG/ML Topical Cream Triamcin olone Acetonide 0.1 % Triamcinolone Acetonide 0.1 % 08/13/2020 12:00:00 AM EDT 1.0 {appli cation} active Triamcinolone Acetonide 0 .1 % eCW1 ([facility]) Triamcinolone Acetonide 1 MG/ML Topical Cream Triamcin olone Acetonide 0.1 % Triamcinolone Acetonide 0.1 % 08/13/2020 12:00:00 AM EDT 1.0 {appli cation} active Triamcinolone Acetonide 0 .1 % eCW1 ([facility]) Triamcinolone Acetonide 1 MG/ML Topical Cream Triamcin olone Acetonide 0.1 % Triamcinolone Acetonide 0.1 % 08/13/2020 12:00:00 AM EDT 1.0 {appli cation} active Triamcinolone Acetonide 0 .1 % eCW1 ([facility]) Triamcinolone Acetonide 1 MG/ML Topical Cream Triamcin olone Acetonide 0.1 % Triamcinolone Acetonide 0.1 % 08/13/2020 12:00:00 AM EDT 1.0 {appli cation} active Triamcinolone Acetonide 0 .1 % eCW1 ([facility]) Ketoconazole 20 MG/ML Topical Cream Ketoconazole 2 % Ketocon azole 2 % 08/13/2020 12:00:00 AM EDT 1.0 {application} active Ketoconazole 2 % eCW1 ([facility]) Triamcinolone Acetonide 1 MG/ML Topical Cream Triamcin olone Acetonide 0.1 % Triamcinolone Acetonide 0.1 % 08/13/2020 12:00:00 AM EDT 1.0 {appli cation} active Triamcinolone Acetonide 0 .1 % eCW1 ([facility]) Triamcinolone Acetonide 1 MG/ML Topical Cream Triamcin olone Acetonide 0.1 % Triamcinolone Acetonide 0.1 % 08/13/2020 12:00:00 AM EDT 1.0 {appli cation} active Triamcinolone Acetonide 0 .1 % eCW1 ([facility]) Triamcinolone Acetonide 1 MG/ML Topical Cream Triamcin olone Acetonide 0.1 % Triamcinolone Acetonide 0.1 % 08/13/2020 12:00:00 AM EDT 1.0 {appli cation} active Triamcinolone Acetonide 0 .1 % eCW1 ([facility]) Allergy Injection 2 Or More 07/27/2020 12:00:00 AM EDT completed [facility] ([facility]) Medication administered onsite Allergy Injection 2 Or More 07/06/2020 12:00:00 AM EDT completed [facility] ([facility]) Medication administered onsite Hydroxyzine Hydrochloride 50 MG Oral Tablet hydrOXYzin e HCl 50 MG hydrOXYzine HCl 50 MG 06/16/2020 12:00:00 AM EDT active hydrOXYzine HCl 50 MG eCW1 ([facility]) Allergy Injection 2 Or More 06/16/2020 12:00:00 AM EDT completed [facility] ([facility]) Medication administered onsite Hydroxyzine Hydrochloride 50 MG Oral Tablet hydrOXYzin e HCl 50 MG hydrOXYzine HCl 50 MG 06/16/2020 12:00:00 AM EDT active hydrOXYzine HCl 50 MG eCW1 ([facility]) Allergy Injection 2 Or More 05/27/2020 12:00:00 AM EDT completed [facility] ([facility]) Medication administered onsite Allergy Injection 2 Or More 05/04/2020 12:00:00 AM EST completed [facility] ([facility]) Medication administered onsite Etonogestrel 68 MG Drug Implant [Nexplanon] Nexplanon 68 MG Nexplanon 68 MG 05/01/2020 12:00:00 AM EST active Nexplanon 68 MG eCW1 ([facility]) Etonogestrel 68 MG Drug Implant [Nexplanon] Nexplanon 68 MG Nexplanon 68 MG 05/01/2020 12:00:00 AM EST active Nexplanon 68 MG eCW1 ([facility]) Etonogestrel 68 MG Drug Implant [Nexplanon] Nexplanon 68 MG Nexplanon 68 MG 05/01/2020 12:00:00 AM EST active Nexplanon 68 MG eCW1 (On License Of [facility]) Etonogestrel 68 MG Drug Implant [Nexplanon] Nexplanon 68 MG Nexplanon 68 MG 05/01/2020 12:00:00 AM EST active Nexplanon 68 MG eCW1 (On License Of [facility]) Etonogestrel 68 MG Drug Implant [Nexplanon] Nexplanon 68 MG Nexplanon 68 MG 05/01/2020 12:00:00 AM EST active Nexplanon 68 MG eCW1 (On License Of [facility]) Etonogestrel 68 MG Drug Implant [Nexplanon] Nexplanon 68 MG Nexplanon 68 MG 05/01/2020 12:00:00 AM EST active Nexplanon 68 MG eCW1 (On License Of [facility]) Etonogestrel 68 MG Drug Implant [Nexplanon] Nexplanon 68 MG Nexplanon 68 MG 05/01/2020 12:00:00 AM EST active Nexplanon 68 MG eCW1 (On License Of [facility]) Etonogestrel 68 MG Drug Implant [Nexplanon] Nexplanon 68 MG Nexplanon 68 MG 05/01/2020 12:00:00 AM EST active Nexplanon 68 MG eCW1 (On License Of [facility]) Etonogestrel 68 MG Drug Implant [Nexplanon] Nexplanon 68 MG Nexplanon 68 MG 05/01/2020 12:00:00 AM EST active Nexplanon 68 MG eCW1 (On License Of [facility]) Etonogestrel 68 MG Drug Implant [Nexplanon] Nexplanon 68 MG Nexplanon 68 MG 05/01/2020 12:00:00 AM EST active Nexplanon 68 MG eCW1 (On License Of [facility]) Etonogestrel 68 MG Drug Implant [Nexplanon] Nexplanon 68 MG Nexplanon 68 MG 05/01/2020 12:00:00 AM EST active Nexplanon 68 MG eCW1 (On License Of [facility]) Etonogestrel 68 MG Drug Implant [Nexplanon] Nexplanon 68 MG Nexplanon 68 MG 05/01/2020 12:00:00 AM EST active Nexplanon 68 MG eCW1 (On License Of [facility]) Etonogestrel 68 MG Drug Implant [Nexplanon] Nexplanon 68 MG Nexplanon 68 MG 05/01/2020 12:00:00 AM EST active Nexplanon 68 MG eCW1 (On License Of [facility]) Etonogestrel 68 MG Drug Implant [Nexplanon] Nexplanon 68 MG Nexplanon 68 MG 05/01/2020 12:00:00 AM EST active Nexplanon 68 MG eCW1 (On License Of [facility]) Etonogestrel 68 MG Drug Implant [Nexplanon] Nexplanon 68 MG Nexplanon 68 MG 05/01/2020 12:00:00 AM EST active Nexplanon 68 MG eCW1 (On License Of [facility]) Etonogestrel 68 MG Drug Implant [Nexplanon] Nexplanon 68 MG Nexplanon 68 MG 05/01/2020 12:00:00 AM EST active Nexplanon 68 MG eCW1 (On License Of [facility]) Etonogestrel 68 MG Drug Implant [Nexplanon] Nexplanon 68 MG Nexplanon 68 MG 05/01/2020 12:00:00 AM EST active Nexplanon 68 MG eCW1 (On License Of [facility]) Etonogestrel 68 MG Drug Implant [Nexplanon] Nexplanon 68 MG Nexplanon 68 MG 05/01/2020 12:00:00 AM EST active Nexplanon 68 MG eCW1 (On License Of [facility]) Etonogestrel 68 MG Drug Implant [Nexplanon] Nexplanon 68 MG Nexplanon 68 MG 05/01/2020 12:00:00 AM EST active Nexplanon 68 MG eCW1 (On License Of [facility]) Etonogestrel 68 MG Drug Implant [Nexplanon] Nexplanon 68 MG Nexplanon 68 MG 05/01/2020 12:00:00 AM EST active Nexplanon 68 MG eCW1 (On License Of [facility]) Etonogestrel 68 MG Drug Implant [Nexplanon] Nexplanon 68 MG Nexplanon 68 MG 05/01/2020 12:00:00 AM EST active Nexplanon 68 MG eCW1 (On License Of [facility]) Allergy Injection 2 Or More 04/13/2020 12:00:00 AM EST completed [facility] Medication administered onsite Allergy Injection 2 Or More 03/30/2020 12:00:00 AM EST completed [facility] ([facility] Medication administered onsite Psyllium 520 MG Oral Capsule Psyllium Fiber 03/26/2020 12:00:00 AM EST ORAL completed [facility] ([facility], ) Dicyclomine Hydrochloride 20 MG Oral Tablet Dicyclomine HCL 03/26/2020 12:00:00 AM EST ORAL active [facility] ([facility], ) Tretinoin 0.25 MG/ML Topical Cream Tretinoin 0.025 % Tretino in 0.025 % 03/09/2020 12:00:00 AM EST active Tretinoin 0.025 % eCW1 (On License Of [facility]) Tretinoin 0.25 MG/ML Topical Cream Tretinoin 0.025 % Tretino in 0.025 % 03/09/2020 12:00:00 AM EST active Tretinoin 0.025 % eCW1 (On License Of [facility]) Allergy Injection 2 Or More 03/09/2020 12:00:00 AM EST completed [facility] ([facility] Medication administered onsite Tretinoin 0.25 MG/ML Topical Cream Tretinoin 0.025 % Tretino in 0.025 % 03/09/2020 12:00:00 AM EST active Tretinoin 0.025 % eCW1 (On License Of [facility]) Tretinoin 0.25 MG/ML Topical Cream Tretinoin 0.025 % Tretino in 0.025 % 03/09/2020 12:00:00 AM EST active Tretinoin 0.025 % eCW1 (On License Of [facility]) Tretinoin 0.25 MG/ML Topical Cream Tretinoin 0.025 % Tretino in 0.025 % 03/09/2020 12:00:00 AM EST active Tretinoin 0.025 % eCW1 (On License Of [facility]) Doxycycline Monohydrate 100 MG Oral Capsule Doxycycline Bell hydrate 100 MG 02/25/2020 12:00:00 AM EST 1.0 {capsule} active Doxycycline Monohydrate 100 MG eCW1 (On License Of [facility]) Doxycycline Monohydrate 100 MG Oral Capsule Doxycycline Bell hydrate 100 MG 02/25/2020 12:00:00 AM EST 1.0 {capsule} active Doxycycline Monohydrate 100 MG eCW1 (On License Of [facility]) Doxycycline Monohydrate 100 MG Oral Capsule Doxycycline Bell hydrate 100 MG 02/25/2020 12:00:00 AM EST 1.0 {capsule} active Doxycycline Monohydrate 100 MG eCW1 (On License Of [facility]) Doxycycline Monohydrate 100 MG Oral Capsule Doxycycline Bell hydrate 100 MG 02/25/2020 12:00:00 AM EST 1.0 {capsule} active Doxycycline Monohydrate 100 MG eCW1 (On License Of [facility]) Doxycycline Monohydrate 100 MG Oral Capsule Doxycycline Bell hydrate 100 MG 02/25/2020 12:00:00 AM EST 1.0 {capsule} active Doxycycline Monohydrate 100 MG eCW1 (On License Of [facility]) Doxycycline Monohydrate 100 MG Oral Capsule Doxycycline Bell hydrate 100 MG 02/25/2020 12:00:00 AM EST 1.0 {capsule} active Doxycycline Monohydrate 100 MG eCW1 (On License Of [facility]) Doxycycline Monohydrate 100 MG Oral Capsule Doxycycline Bell hydrate 100 MG 02/25/2020 12:00:00 AM EST 1.0 {capsule} active Doxycycline Monohydrate 100 MG eCW1 (On License Of [facility]) Doxycycline Monohydrate 100 MG Oral Capsule Doxycycline Bell hydrate 100 MG 02/25/2020 12:00:00 AM EST 1.0 {capsule} active Doxycycline Monohydrate 100 MG eCW1 (On License Of [facility]) Doxycycline Monohydrate 100 MG Oral Capsule Doxycycline Bell hydrate 100 MG 02/25/2020 12:00:00 AM EST 1.0 {capsule} active Doxycycline Monohydrate 100 MG eCW1 (On License Of [facility]) Doxycycline Monohydrate 100 MG Oral Capsule Doxycycline Bell hydrate 100 MG 02/25/2020 12:00:00 AM EST 1.0 {capsule} active Doxycycline Monohydrate 100 MG eCW1 (On License Of [facility]) Doxycycline Monohydrate 100 MG Oral Capsule Doxycycline Bell hydrate 100 MG 02/25/2020 12:00:00 AM EST 1.0 {capsule} active Doxycycline Monohydrate 100 MG eCW1 (On License Of [facility]) Doxycycline Monohydrate 100 MG Oral Capsule Doxycycline Bell hydrate 100 MG 02/25/2020 12:00:00 AM EST 1.0 {capsule} active Doxycycline Monohydrate 100 MG eCW1 (On License Of [facility]) Doxycycline Monohydrate 100 MG Oral Capsule Doxycycline Bell hydrate 100 MG 02/25/2020 12:00:00 AM EST 1.0 {capsule} active Doxycycline Monohydrate 100 MG eCW1 (On License Of [facility]) lamotrigine 100 MG Oral Tablet [Lamictal] LaMICtal 100 MG La MICtal 100 MG 02/20/2020 12:00:00 AM EST active LaMICtal 100 MG eCW1 ([facility]) lamotrigine 150 MG Oral Tablet [Lamictal] LaMICtal 150 MG La MICtal 150 MG 02/20/2020 12:00:00 AM EST active LaMICtal 150 MG eCW1 ([facility]) Allergy Injection 2 Or More 02/17/2020 12:00:00 AM EST completed [facility] ([facility] Medication administered onsite Allergy Injection 2 Or More 01/27/2020 12:00:00 AM EST completed [facility] ([facility] Medication administered onsite Allergy Injection 2 Or More 01/06/2020 12:00:00 AM EDT completed [facility] ([facility]) Medication administered onsite Insurance Providers Payer name Policy type / Coverage type Policy ID Covered alliance party ID Covered alliance party's relationship to hurt Policy Hurt Plan Information [employer] Health Maintenance Organization (HMO) Z [id number] Family Dependent [id number] [employer] Health Maintenance Organization (HMO) Z [id number]. Family Dependent [id number] [employer] Health Maintenance Organization (HMO) Z [id number] Family Dependent [id number] [employer] Health Maintenance Organization (HMO) Z [id number] Family Dependent [id number] [employer] Health Maintenance Organization (HMO) Z [id number] Family Dependent [id number] [employer] Health Maintenance Organization (HMO) Z [id number] [id number] Family Dependent [id number] [employer] Health Maintenance Organization (HMO) Z [id number] Family Dependent [id number] [employer] Health Maintenance Organization (HMO) Z [id number] Family Dependent [id number] [employer] Maintenance Organization (HMO) Z [id number] Family Dependent [id number] [employer] Health Maintenance Organization (HMO) C HP BC BS [id number]. Family Dependent CHP BC BS [employer] Health Maintenance Organization (HMO) Z [id number] ..1.370190.3.227.99.28.29177. Family Dependent [id number] [employer] Health Maintenance Organization (HMO) Z [id number] ..1.715232.3.227.99.28.01119. Family Dependent [id number] [employer] Commercial [id number] ..1.692028.3.227.99.28.51915. Family Dependent [id number] [employer] Commercial [id number] .1.970903.3.227.99.28.08500. Family Dependent [id number] [employer] Commercial [id number] .1.358534.3.227.99.28.71891. Family Dependent [id number] [employer] Commercial [id number] .1.743494.3.227.99.28.74976. Family Dependent [id number] [employer] Commercial [id number] .1.991285.3.227.99.28.75021. Family Dependent [id number] [employer] Commercial [id number] .1.390402.3.227.99.28.36610. Family Dependent [id number] [employer] Commercial [id number] .1.309688.3.227.99.28.04757. Family Dependent [id number] [employer] [id number] Family Dependent [id number] [employer] Commercial [employer] ..1.270744.3.227.99.28.47720. Family Dependent H[employer] Options [employer] Commercial [id number] ..1.593512.3.227.99.28.75078. Family Dependent [id number] [employer] [id number] ..1.124826.3.227.99.28.04145. Family Dependent [id number] [employer] Commercial [id number] ..1.523849.3.227.99..45096. Family Dependent [id number] [facility] [employer] Commercial [id number] ..1.831560.3.227.99.28.91824. Family Dependent [id number] [facility] [employer] Commercial [id number] Family Dependent [id number] [facility] [employer] Commercial [id number] .1.381444.3.227.99.28.99626. Family Dependent [id number] [facility] [employer] Commercial [id number] .1.529747.3.227.99.28.51467. Family Dependent [id number] [facility] [employer] Commercial [id number] .1.878117.3.227.99.28.36623. Family Dependent [id number] [facility] [employer] Commercial [id number] .1.373905.3.227.99.28.84691. Family Dependent [id number] [facility] [employer] Commercial [id number] .1.956364.3.227.99.28.87487. Family Dependent [id number] [facility] [employer] Commercial [id number] 04.28.830.1.296833.3.227.99.28.50316. Family Dependent [id number] [facility] Community Plan Commercial [id number] 2.0.1.845261.3.22 7.99.991.704005.0 Family Dependent [id number] [facility] [employer] Commercial [id number] .0.1.382578.3.227.99.28.35753. Family Dependent [id number] U [facility] Community Plan Commercial [id number] 04.28.830.1.675576.3.227.99.28.50589. Family Dependent [id number] [facility] [employer] Commercial [id number] .1.689315.3.227.99.28.65966. Family Dependent [id number] [facility] Community Plan Commercial [id number] .1.017580.3.227.99.991.043599.38272 Self [id number] [facility] Community Plan Commercial unhc comm plan 04.28.830.1.225573.3.227.99.28.66837. Family Dependent unhc comm plan Medicaid Dental S [id number] S [id number] [facility] I [id number] Self [id number] [facility] I [id number] Self [id number] [facility] I [id number] Self [id number] Medicaid Medicaid [id number] 04.28.830.1.102508.3.227.99.2 8.66205. Family Dependent [id number] ANSI-Medicaid [id number] [facility] [id number] S [id number] Medicaid Medicaid [id number] Family Dependent [id number] [facility] [employer] [id number] 2.160.1.113 883.3.227.99.28.68190. Family Dependent [id number] Medicaid Medicaid [id number] 2.16840.1.178952.3.227.99.2 8.21066. Family Dependent [id number] [facility] [employer] [id number] Family Dependent [id number] [facility] [id number] [id number] Preferred Provider Organization (PPO) 2.0.1.375534.3.441 [employer] [id number] 2.0.1.113 883.3.227.99.28.03983. Family Dependent [id number] Medicaid Medicaid [id number] 2.840.1.528856.3.227.99.2 8.80830. Family Dependent [id number] Medicaid 2.840.1.361683.3.441 [id number] Medicaid 2.0.1.416274.3.441 [facility] Commercial [id number] Self BS Ann Marie H[employer] Blue Option Medigap Part B [id number] Family Dependent [id number] [facility] Health Maintenance Organization (O) [id number] Self MEDICAID [id number] SP [id number] [employer] [id number] 2.0.1.113 883.3.227.99.28.98439. Family Dependent [id number] Medicaid Medicaid [id number] 2.16840.1.993235.3.227.99.2 8.83153. Family Dependent [id number] [facility] O [id number] S [id number] [facility] Health Maintenance Organization (O) [id number]9.1767.89802.0 Self [id number] [facility] Commercial [id number] 2.0.1.113 883.3.227.99.28.88409. Family Dependent [id number] Medicaid Medicaid [id number] 2.0.1.502791.3.227.99.2 8.62945. Family Dependent [id number] Medicaid S UNAVAILABLE S UNAVAILA BLE D [facility] P [id number] S [id number] BS Ann Marie H[employer] Option Medigap Part B [id number] Family Dependent [id number] BS Ann Marie Hmo [employer] Medigap Part B [id number] Family Dependent [id number] [facility] P UNAVAILABLE S UNAVAILABLE [facility] Commercial [id number] 2..1.113 883.3.227.99.28.65536. Family Dependent [id number] Medicaid Medicaid [id number] 2..1.805501.3.227.99.2 8.72908. Family Dependent [id number] [facility]) O [id number] S [id number] BS Ann Marie Hmo Blue Option Medigap Part B ..[id number] Self HMO BLUE [id number] SP [id number] [facility] MEDICAID [id number] S [id number] Medicaid Medicaid [id number] 2..1.094808.3.227.99.[address]189[address] Family Dependent [id number] [facility] 2.0.1.852197.3.227.99.28.14313. Family Dependent [facility] Commercial [id number] 2.0.1.113 883.3.227.99.28.37327. Family Dependent [id number] [facility] Commercial [id number] 2.16.840.1.113 883.3.227.99.28.66702. Family Dependent [id number] Medicaid Medicaid [id number] 2.16.840.1.334878.3.227.99.2 8.89292. Family Dependent [id number] [facility] [id number] [facility] Health Maintenance Organization ([facility]) [id number]9.1767.96942.0 Self [id number] [facility] Commercial [id number] 2.16.840.1.113 883.3.227.99.28.03024. Family Dependent [id number] Medicaid Medicaid [id number] 2.16.840.1.652043.3.227.99.2 8.70094. Family Dependent [id number] Medicaid Medicaid Medicaid 2.16.840.1.719221.3.227.99.2 8.43009. Family Dependent Medicaid Medicaid Medicaid [id number] 2.16.840.1.638001.3.227.99.[address].06430. Family Dependent [id number] [facility] Health Maintenance Organization (O) [id number] [id number] Self [id number] [employer] [id number] 2.16840.1.113 883.3.227.99.28.26209. Family Dependent [id number] [employer] [id number] 2.16840.1.113 883.3.227.99.28.44363. 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 Diagnosis 11/26/2020 11:45: 00 AM EDT [facility] F31.9 Bipolar disorder, unspecified BIPOLAR DISORDER, UNSPEC IFIED Diagnosis 11/26/2020 11:45:00 AM EDT [facility] J30.89 [id number] Non-seasonal allergic rhinitis, unspecifi ed trigger Problem 02/16/2021 12:00:00 AM EST eCW1 (On License Of [facility]) E55.9 [id number] Vitamin D deficiency Problem 02/16/2021 12:0 0:00 AM EST eCW1 (On License Of [facility]) F90.9 Attention deficit hyperactivity disorder Adult ADHD Problem 02/16/2021 12:00:00 AM EST eCW1 (On License Of [facility]) F60.9 [id number] Personality disorder Problem 12/29/2020 12:0 0:00 AM EDT eCW1 ([facility]) G89.29 [id number] Other chronic pain Problem 11/29/2020 12:00: 00 AM EDT eCW1 (On License Of [facility]) J30.2 [id number] Seasonal allergies Problem 06/15/2020 12:00: 00 AM EDT eCW1 (On License Of [facility]) N93.9 [id number] Abnormal uterine bleeding (AUB) Problem 05/01/2020 12:00:00 AM EST eCW1 (On License Of [facility]) Surgeries/Procedures Procedure Description Date Indications Data Source(s) PREPJ& ALLERGEN IMMUNOTHERAPY 1/PARKING MANAGER ANTIGEN 02/19/2021 12:00:00 AM EST [facility] ([facility]) PROF GRIMES ALLG IMMNTX X W/PRV ALLGIC XTRCS NJXS 2020 12:00:00 AM EST [facility] ([facility]) PROF GRIMES ALLG IMMNTX X W/PRV ALLGIC XTRCS NJXS 2020 12:00:00 AM EST [facility] ([facility]) PROF GRIMES ALLG IMMNTX X W/PRV ALLGIC XTRCS NJXS 2020 12:00:00 AM EDT [facility] ([facility]) PROF CORNELIO FERRERA IMMNTX X W/PRV ALLGIC XTRCS NJXS 2020 12:00:00 AM EDT [facility] ([facility]) PERCUTANEOUS TESTS W/ALLERGENIC EXTRACTS 12/03/2020 12 :00:00 AM EDT [facility] ([facility]) INTRACUTANEOUS TESTS W/ALLERGENIC EXTRACTS 12/03/2020 12:00:00 AM EDT [facility] ([facility]) PROF CORNELIO FERRERA IMMNTX X W/PRV ALLGIC XTRCS NJXS 2020 12:00:00 AM EDT [facility] ([facility]) PROF CORNELIO FERRERA IMMNTX X W/PRV ALLGIC XTRCS NJXS 2020 12:00:00 AM EDT [facility] ([facility]) BRNCDILAT RSPSE SPMTRY PRE&POST-BRNCDILAT ADMN 021 12:00:00 AM EDT [facility] ([facility]) OFFICE OUTPATIENT VISIT 15 MINUTES 10/26/2020 12:00:00 AM EDT [facility] ([facility]) PROF CORNELIO FERRERA IMMNTX X W/PRV ALLGIC XTRCS NJXS 2020 12:00:00 AM EDT [facility] ([facility]) PROF CORNELIO FERRERA IMMNTX X W/PRV ALLGIC XTRCS NJXS 2020 12:00:00 AM EDT [facility] ([facility]) OFFICE OUTPATIENT VISIT 25 MINUTES 09/07/2020 12:00:00 AM EDT [facility] ([facility], ) PREPJ& ALLERGEN IMMUNOTHERAPY 1/PARKING MANAGER ANTIGEN 08/21/2020 12:00:00 AM EDT [facility] ([facility]) PROF CORNELIO FERRERA IMMNTX X W/PRV ALLGIC XTRCS NJXS 2020 12:00:00 AM EDT [facility] ([facility]) PROF SVCS ALLG IMMNTX X W/PRV ALLGIC XTRCS NJXS 2020 12:00:00 AM EDT [facility] ([facility]) PROF GRIMES ALLG IMMNTX X W/PRV ALLGIC XTRCS NJXS 2020 12:00:00 AM EDT [facility] ([facility]) PROF CORNELIO GRUBERG IMMNTX X W/PRV ALLGIC XTRCS NJXS 2020 12:00:00 AM EDT [facility] ([facility]) Med: Derm 1% Lidocaine with Epinephrine Injection Intr adermally to marked areas 06/10/2020 12:00:00 AM EDT eCW1 ([facility]) PROF CORNELIO GRUBERG IMMNTX X W/PRV ALLGIC XTRCS NJXS 2020 12:00:00 AM EDT [facility] ([facility]) OFFICE OUTPATIENT VISIT 15 MINUTES 05/20/2020 12:00:00 AM EST [facility] ([facility], ) PROF CORNELIO GRUBERG IMMNTX X W/PRV ALLGIC XTRCS NJXS 2020 12:00:00 AM EST [facility] ([facility]) PROF CORNELIO GRUBERG IMMNTX X W/PRV ALLGIC XTRCS NJXS 2020 12:00:00 AM EST [facility] ([facility]) PROF CORNELIO GRUBERG IMMNTX X W/PRV ALLGIC XTRCS NJXS 2020 12:00:00 AM EST [facility] ([facility]) PREPJ& ALLERGEN IMMUNOTHERAPY 1/PARKING MANAGER ANTIGEN 03/24/2020 12:00:00 AM EST [facility] ([facility]) PROF GRIMES ALLG IMMNTX X W/PRV ALLGIC XTRCS NJXS 2019 12:00:00 AM EST [facility] ([facility]) PROF GRIMES ALLG IMMNTX X W/PRV ALLGIC XTRCS NJXS 2019 12:00:00 AM EST [facility] ([facility]) PROF CORNELIO GRUBERG IMMNTX X W/PRV ALLGIC XTRCS NJXS 2019 12:00:00 AM EST [facility] ([facility]) PROF GRIMES ALLG IMMNTX X W/PRV ALLGIC XTRCS NJXS 2019 12:00:00 AM EDT [facility] ([facility]) Results ID Date Data Source PT & APTT 02/16/2021 12:00:00 AM EST eCW1 ([facility] Name Value Range Interpretation Code Description Data Alyssa rce(s) Supporting Document(s) 1.04 INR eCW1 ([facility]) 14.0 12.7-14.5 PROTHROMBIN TIME eCW1 (Critical access hospital) 30.8 25.9-37.0 PARTIAL THROMBOPLASTIN TI ME eCW1 (On License Of [facility]) ID Date Data Source Comprehensive Metabolic Profile (CMP) 02/16/2021 12:00:00 AM EST eCW1 (On License Of [facility]) Name Value Range Interpretation Code Description Data Alyssa rce(s) Supporting Document(s) 81 70-100 GLUCOSE, FASTING eCW1 (Critical access hospital) 13 7-18 BLOOD UREA NITROGEN eCW1 ([facility]) 0.70 0.55-1.30 CREATININE FOR GFR eCW1 ([facility]) 4.1 3.5-5.1 POTASSIUM SERUM eCW1 ([facility]) 140 136-145 SODIUM LEVEL eCW1 ([facility]) 106 98-107 CHLORIDE LEVEL eCW1 ([facility]) 30 21-32 CARBON DIOXIDE LEVEL eCW1 ([facility]) 9.2 8.5-10.1 CALCIUM LEVEL eCW1 ([facility]) 15 7-37 AST/SGOT eCW1 ([facility]) 21 12-78 ALT/SGPT eCW1 ([facility]) 0.3 0.2-1.0 BILIRUBIN,TOTAL eCW1 ([facility]) 89 45-117 ALKALINE PHOSPHATASE eCW1 ([facility]) 6.8 6.4-8.2 TOTAL PROTEIN eCW1 ([facility]) 1.3 1.2-2.2 ALBUMIN/GLOBULIN RATIO eCW1 (Critical access hospital) 3.8 3.2-5.2 ALBUMIN eCW1 ([facility]) ID Date Data Source CBC with Differential 02/16/2021 12:00:00 AM EST eCW1 ([facility]) Name Value Range Interpretation Code Description Data Alyssa rce(s) Supporting Document(s) 6.7 4.0-10.0 WHITE BLOOD COUNT eCW1 ([facility]) 12.7 12.0-15.5 HEMOGLOBIN eCW1 ([facility]) 4.69 4.00-5.40 RED BLOOD COUNT eCW1 ([facility]) 38.7 36.0-47.0 HEMATOCRIT eCW1 ([facility]) 82.5 80.0-96.0 MEAN CORPUSCULAR VOLUME e CW1 ([facility]) 27.1 27.0-33.0 MEAN CORPUSCULAR HEMOGLOB IN eCW1 ([facility]) 250 150-450 PLATELET COUNT, AUTOMATED eCW1 ([facility]) 13.2 11.5-14.5 RED CELL DISTRIBUTION WID TH eCW1 ([facility]) 32.8 32.0-36.5 MEAN CORPUSCULAR HGB CONC eCW1 ([facility]) 44.6 36.0-66.0 NEUTROPHILS % eCW1 ([facility]) 4.5 0.0-3.0 EOS % eCW1 ([facility]) 9.1 2.0-8.0 MONO % eCW1 ([facility]) 40.8 24.0-44.0 LYMPH % eCW1 ([facility]) 0.7 0.0-1.0 BASO % eCW1 ([facility]) 2.8 1.5-5.0 LYMPH # eCW1 ([facility]) 3.0 1.5-8.5 NEUTROPHILS # eCW1 ([facility]) 0.6 0.0-0.8 MONO # eCW1 ([facility]) 0.1 0.0-0.2 BASO # eCW1 ([facility]) 0.3 0.0-0.5 EOS # eCW1 ([facility]) ID Date Data Source NT-PRO BNP 02/16/2021 12:00:00 AM EST eCW1 ([facility] Name Value Range Interpretation Code Description Data Alyssa rce(s) Supporting Document(s) 20 <125 NT-PRO BNP eCW1 ([facility]) ID Date Data Source VITB12 & FOL 07/30/2020 12:00:00 AM EDT eCW1 (Critical access hospital) Name Value Range Interpretation Code Description Data Alyssa rce(s) Supporting Document(s) > 2000 VITAMIN B12 LEVEL eCW1 ([facility]) 6.7 FOLATE eCW1 ([facility]) ID Date Data Source VITAMIN D 25-HYDROXY 07/30/2020 12:00:00 AM EDT eCW1 ([facility]) Name Value Range Interpretation Code Description Data Alyssa rce(s) Supporting Document(s) 26.4 30.0-100.0 TOTAL 25(OH) VITAMIN D eC W1 ([facility]) ID Date Data Source Basic Metabolic Profile (BMP) 07/30/2020 12:00:00 AM EDT eCW 1 (On [facility] Of [facility]) Name Value Range Interpretation Code Description Data Alyssa rce(s) Supporting Document(s) 79 70-100 GLUCOSE, FASTING eCW1 (Critical access hospital) 11 7-18 BLOOD UREA NITROGEN eCW1 ([facility]) 0.75 0.55-1.30 CREATININE FOR GFR eCW1 ([facility]) 30 21-32 CARBON DIOXIDE LEVEL eCW1 ([facility]) 108 98-107 CHLORIDE LEVEL eCW1 ([facility]) 4.6 3.5-5.1 POTASSIUM SERUM eCW1 ([facility]) 142 136-145 SODIUM LEVEL eCW1 ([facility]) 9.3 8.5-10.1 CALCIUM LEVEL eCW1 (On [facility]) ID Date Data Source FREE T4 & TSH PANEL 07/30/2020 12:00:00 AM EDT eCW1 (Critical access hospital) Name Value Range Interpretation Code Description Data Alyssa rce(s) Supporting Document(s) 1.520 0.463-3.98 THYROID STIMULATING HORMO NE eCW1 ([facility]) 0.75 0.78-1.33 FREE T4 eCW1 ([facility]) ID Date Data Source CBC - Complete Blood Count 04/13/2020 12:00:00 AM EST eCW1 ( [facility]) Name Value Range Interpretation Code Description Data Alyssa rce(s) Supporting Document(s) 7.0 4.0-10.0 WHITE BLOOD COUNT eCW1 ([facility]) 4.56 4.00-5.40 RED BLOOD COUNT eCW1 ([facility]) 12.1 12.0-15.5 HEMOGLOBIN eCW1 ([facility]) 83.1 80.0-96.0 MEAN CORPUSCULAR VOLUME e CW1 ([facility]) 37.9 36.0-47.0 HEMATOCRIT eCW1 ([facility]) 26.5 27.0-33.0 MEAN CORPUSCULAR HEMOGLOB IN eCW1 ([facility]) 13.0 11.5-14.5 RED CELL DISTRIBUTION WID TH eCW1 ([facility]) 31.9 32.0-36.5 MEAN CORPUSCULAR HGB CONC eCW1 ([facility]) 253 150-450 PLATELET COUNT, AUTOMATED eCW1 ([facility]) Procedure Social History Code Duration Value Status Description Data Source(s ) Smoking 02/16/2021 12:00:00 AM EST Never Smoker completed Never S moker eCW1 ([facility]) Smoking 02/16/2021 12:00:00 AM EST Never Smoker completed Never S moker eCW1 ([facility]) Smoking 12/28/2020 12:00:00 AM EDT Never Smoker completed Never S moker eCW1 ([facility]) Smoking 12/28/2020 12:00:00 AM EDT Never Smoker completed Never S moker eCW1 ([facility]) Smoking 12/03/2020 12:00:00 AM EDT Patient has never smoked co mpleted Patient has never smoked MEDENT ([facility] ) Smoking 11/09/2020 12:00:00 AM EDT Never Smoker completed Never S moker eCW1 ([facility]) Smoking 11/09/2020 12:00:00 AM EDT Never Smoker completed Never S moker eCW1 ([facility]) Smoking 11/09/2020 12:00:00 AM EDT Never Smoker completed Never S moker eCW1 ([facility]) Smoking 11/09/2020 12:00:00 AM EDT Never Smoker completed Never S moker eCW1 ([facility]) Smoking 11/09/2020 12:00:00 AM EDT Never Smoker completed Never S moker eCW1 ([facility]) Smoking 10/06/2020 12:00:00 AM EDT Never Smoker completed Never S moker eCW1 ([facility]) Smoking 10/06/2020 12:00:00 AM EDT Never Smoker completed Never S moker eCW1 ([facility]) Smoking 08/13/2020 12:00:00 AM EDT Never Smoker completed Never S moker eCW1 ([facility]) Smoking 08/13/2020 12:00:00 AM EDT Never Smoker completed Never S moker eCW1 ([facility]) Smoking 08/13/2020 12:00:00 AM EDT Never Smoker completed Never S moker eCW1 ([facility]) Smoking 08/13/2020 12:00:00 AM EDT Never Smoker completed Never S moker eCW1 ([facility]) Smoking 08/13/2020 12:00:00 AM EDT Never Smoker completed Never S moker eCW1 ([facility]) Smoking 06/10/2020 12:00:00 AM EDT Never Smoker completed Never S moker eCW1 ([facility]) Smoking 06/10/2020 12:00:00 AM EDT Never Smoker completed Never S moker eCW1 ([facility]) Smoking 06/10/2020 12:00:00 AM EDT Never Smoker completed Never S moker eCW1 ([facility]) Smoking 05/04/2020 12:00:00 AM EST Never Smoker completed Never S moker eCW1 ([facility]) Smoking 05/04/2020 12:00:00 AM EST Never Smoker completed Never S moker eCW1 ([facility]) Smoking 04/09/2020 12:00:00 AM EST Never Smoker completed Never S moker eCW1 ([facility]) Smoking 03/09/2020 12:00:00 AM EST Never Smoker completed Never S moker eCW1 ([facility]) Smoking 03/09/2020 12:00:00 AM EST Never Smoker completed Never S moker eCW1 ([facility]) Smoking 01/14/2020 12:00:00 AM EST Never Smoker completed Never S moker eCW1 ([facility]) Smoking 01/14/2020 12:00:00 AM EST Never Smoker completed Never S moker eCW1 ([facility]) Smoking 01/14/2020 12:00:00 AM EST Never Smoker completed Never S moker eCW1 ([facility]) Smoking 01/14/2020 12:00:00 AM EST Never Smoker completed Never S moker eCW1 ([facility]) Vital Signs ID Date Data Source UNK Name Value Range Interpretation Code Description Data Source(s) Heart rate 103 /min 103 /min eCW1 ([facility]) Body weight 181.8 [lb_av] 181.8 [lb_av] eCW1 ([facility]) Body weight 82.46 kg 82.46 kg eCW1 ([facility]) Body height 66.5 [in_i] 66.5 [in_i] eCW1 ([facility]) Body mass index (BMI) [Ratio] 28.90 kg/m2 28.90 kg/m2 eCW1 ([facility]) Respiratory rate 18 /min 18 /min eCW1 ([facility]) Body temperature 98.5 [degF] 98.5 [degF] eCW1 ( [facility]) Systolic blood pressure 120 mm[Hg] 120 mm[Hg] e CW1 ([facility]) Diastolic blood pressure 70 mm[Hg] 70 mm[Hg] eCW1 ([facility]) Diastolic blood pressure 72 mm[Hg] 72 mm[Hg] MEDENT ([facility]) Heart rate 88 /min 88 /min MEDENT ([facility]) Respiratory rate 16 /min 16 /min MEDENT ( [facility]) Systolic blood pressure 128 mm[Hg] 128 mm[Hg] M EDENT ([facility]) Body temperature 98.1 [degF] 98.1 [degF] MEDENT ([facility]) Body height 67 [in_i] 67 [in_i] MEDENT ([facility]) 5'7" Body weight 182.00 [lb_av] 182.00 [lb_av] MEDEN T ([facility]) Body weight 82.555 kg 82.555 kg [employer] ([facility]) Body height [Percentile] 18 % 18 % MED[facility] ([facility]) Body surface area Derived from formula 1.94 m2 1.94 m2 [employer] ([facility]) Body mass index (BMI) [Ratio] 28.5 kg/m2 28.5 k g/m2 [employer] ([facility]) [place] body weight 148 [lb_av] 148 [lb_av] MEDEN T ([facility]) Respiratory rate 18 /min 18 /min MEDENT ( [facility]) Body weight 179.12 [lb_av] 179.12 [lb_av] MEDEN T ([facility]) Body height 66.5 [in_i] 66.5 [in_i] MEDENT ([facility] 5'6.50" Heart rate 98 /min 98 /min MED[facility] ([facility]) Systolic blood pressure 107 mm[Hg] 107 mm[Hg] M EDENT ([facility]) Diastolic blood pressure 74 mm[Hg] 74 mm[Hg] MEDENT ([facility]) Body mass index (BMI) [Ratio] 28.5 kg/m2 28.5 k g/m2 MED[facility] ([facility]) Body weight 180 [lb_av] 180 [lb_av] eCW1 ([facility]) Body weight 81.65 kg 81.65 kg eCW1 ([facility]) Body height 66.5 [in_i] 66.5 [in_i] eCW1 ([facility]) Body mass index (BMI) [Ratio] 28.61 kg/m2 28.61 kg/m2 eCW1 ([facility]) Heart rate 97 /min 97 /min eCW1 ([facility]) Respiratory rate 18 /min 18 /min eCW1 ([facility]) Body temperature 98.2 [degF] 98.2 [degF] eCW1 ( [facility]) Systolic blood pressure 126 mm[Hg] 126 mm[Hg] e CW1 ([facility]) Diastolic blood pressure 70 mm[Hg] 70 mm[Hg] eCW1 ([facility]) Body mass index (BMI) [Ratio] 28.0 kg/m2 28.0 k g/m2 MED[facility] ([facility]) Diastolic blood pressure 72 mm[Hg] 72 mm[Hg] MED[facility] ([facility]) Body height 66.5 [in_i] 66.5 [in_i] MED[facility] ([facility] 5'6.50" Body weight 176.00 [lb_av] 176.00 [lb_av] MEDEN T ([facility]) Heart rate 80 /min 80 /min MED[facility] ([facility]) Respiratory rate 16 /min 16 /min MED[facility] ( [facility]) Systolic blood pressure 105 mm[Hg] 105 mm[Hg] M EDENT ([facility]) Body weight 180.2 [lb_av] 180.2 [lb_av] eCW1 ([facility]) Body height 66.5 [in_i] 66.5 [in_i] eCW1 ([facility]) Body mass index (BMI) [Ratio] 28.65 kg/m2 28.65 kg/m2 eCW1 ([facility]) Systolic blood pressure 128 mm[Hg] 128 mm[Hg] e CW1 ([facility]) Diastolic blood pressure 70 mm[Hg] 70 mm[Hg] eCW1 (On [facility]) Body weight 175.2 [lb_av] 175.2 [lb_av] eCW1 ([facility]) Body height 66.5 [in_i] 66.5 [in_i] eCW1 ([facility]) Body mass index (BMI) [Ratio] 27.85 kg/m2 27.85 kg/m2 eCW1 ([facility]) Body mass index (BMI) [Ratio] 27.18 kg/m2 27.18 kg/m2 eCW1 ([facility]) Body height 66.5 [in_i] 66.5 [in_i] eCW1 ([facility]) Body weight 171 [lb_av] 171 [lb_av] eCW1 ([facility]) Heart rate 125 /min 125 /min eCW1 ([facility]) Respiratory rate 18 /min 18 /min eCW1 ([facility]) Body temperature 97.3 [degF] 97.3 [degF] eCW1 ( [facility]) Systolic blood pressure 116 mm[Hg] 116 mm[Hg] e CW1 ([facility]) Diastolic blood pressure 74 mm[Hg] 74 mm[Hg] eCW1 ([facility]) Diastolic blood pressure 76 mm[Hg] 76 mm[Hg] eCW1 ([facility]) Body weight 173.0 [lb_av] 173.0 [lb_av] eCW1 ([facility]) Body height 66.5 [in_i] 66.5 [in_i] eCW1 ([facility]) Body mass index (BMI) [Ratio] 27.50 kg/m2 27.50 kg/m2 eCW1 ([facility]) Systolic blood pressure 114 mm[Hg] 114 mm[Hg] e CW1 ([facility]) Body weight 76.658 kg 76.658 kg MEDENT ([facility]) Body height [Percentile] 19 % 19 % [facility] ([facility]) Body surface area Derived from formula 1.88 m2 1.88 m2 [facility] ([facility]) Body height 67 [in_i] 67 [in_i] [facility] 5'7" Body weight 169.00 [lb_av] 169.00 [lb_av] MEDEN T ([facility]) Body mass index (BMI) [Ratio] 26.5 kg/m2 26.5 k g/m2 [facility] ([facility]) [place] body weight 148 [lb_av] 148 [lb_av] MEDEN T ([facility]) Systolic blood pressure 118 mm[Hg] 118 mm[Hg] M EDENT ([facility]) [place] body weight 148 [lb_av] 148 [lb_av] MEDEN T ([facility]) Diastolic blood pressure 62 mm[Hg] 62 mm[Hg] MEDENT ([facility]) Body weight 169.00 [lb_av] 169.00 [lb_av] MEDEN T ([facility]) Body mass index (BMI) [Ratio] 26.5 kg/m2 26.5 k g/m2 MEDENT ([facility]) Body weight 76.658 kg 76.658 kg [facility] ([facility]) Body height [Percentile] 19 % 19 % [facility] ([facility]) Body surface area Derived from formula 1.88 m2 1.88 m2 [facility] ([facility]) Body height 67 [in_i] 67 [in_i] MEDENT ([facility], ) 5'7" Body mass index (BMI) [Ratio] 27.88 kg/m2 27.88 kg/m2 eCW1 ([facility]) Body weight 175.4 [lb_av] 175.4 [lb_av] eCW1 ([facility] hospital) Body height 66.5 [in_i] 66.5 [in_i] eCW1 ([facility]) Systolic blood pressure 122 mm[Hg] 122 mm[Hg] e CW1 ([facility]) Diastolic blood pressure 70 mm[Hg] 70 mm[Hg] eCW1 ([facility]) Body weight 173 [lb_av] 173 [lb_av] eCW1 ([facility]) Body weight 78.47 kg 78.47 kg eCW1 ([facility]) Body height 66.5 [in_i] 66.5 [in_i] eCW1 ([facility]) Body mass index (BMI) [Ratio] 27.5 kg/m2 27.5 k g/m2 eCW1 ([facility]) Systolic blood pressure 98 mm[Hg] 98 mm[Hg] e CW1 ([facility]) Diastolic blood pressure 52 mm[Hg] 52 mm[Hg] eCW1 ([facility]) Body height 66.5 [in_i] 66.5 [in_i] eCW1 ([facility]) Body mass index (BMI) [Ratio] 26.87 kg/m2 26.87 kg/m2 eCW1 ([facility]) Heart rate 61 /min 61 /min eCW1 ([facility]) Respiratory rate 18 /min 18 /min eCW1 ([facility]) Body temperature 98.4 [degF] 98.4 [degF] eCW1 ( [facility]) Systolic blood pressure 102 mm[Hg] 102 mm[Hg] e CW1 ([facility]) Diastolic blood pressure 70 mm[Hg] 70 mm[Hg] eCW1 ([facility]) Body weight 169 [lb_av] 169 [lb_av] eCW1 ([facility]) Body weight 168.0 [lb_av] 168.0 [lb_av] eCW1 ([facility]) Body height 66.5 [in_i] 66.5 [in_i] eCW1 ([facility]) Body mass index (BMI) [Ratio] 26.71 kg/m2 26.71 kg/m2 eCW1 ([facility]) Systolic blood pressure 110 mm[Hg] 110 mm[Hg] e CW1 ([facility]) Diastolic blood pressure 74 mm[Hg] 74 mm[Hg] eCW1 ([facility]) Body height 67 [in_i] 67 [in_i] MEDENT ([facility], ) 5'7" Systolic blood pressure 114 mm[Hg] 114 mm[Hg] M EDENT ([facility], ) Body weight 169.00 [lb_av] 169.00 [lb_av] MEDEN T ([facility]) Body mass index (BMI) [Ratio] 26.5 kg/m2 26.5 k g/m2 MEDENT ([facility], ) Diastolic blood pressure 68 mm[Hg] 68 mm[Hg] [facility] ([facility], ) [place] body weight 148 [lb_av] 148 [lb_av] MEDEN T ([facility], ) Body weight 76.658 kg 76.658 kg [facility] Body height [Percentile] 19 % 19 % [facility] Body surface area Derived from formula 1.88 m2 1.88 m2 MEDENT ([facility], ) Body weight 165 [lb_av] 165 [lb_av] eCW1 ([facility]) Body weight 74.84 kg 74.84 kg W1 (Critical access hospital) Body height 66.5 [in_i] 66.5 [in_i] eCW1 ([facility]) Body mass index (BMI) [Ratio] 26.23 kg/m2 26.23 kg/m2 eCW1 ([facility]) Systolic blood pressure 108 mm[Hg] 108 mm[Hg] e CW1 ([facility]) Diastolic blood pressure 67 mm[Hg] 67 mm[Hg] eCW1 ([facility]) Body weight 164 [lb_av] 164 [lb_av] eCW1 ([facility]) Body height 66.5 [in_i] 66.5 [in_i] eCW1 ([facility]) Body mass index (BMI) [Ratio] 26.07 kg/m2 26.07 kg/m2 eCW1 ([facility]) Systolic blood pressure 108 mm[Hg] 108 mm[Hg] e CW1 ([facility]) Diastolic blood pressure 60 mm[Hg] 60 mm[Hg] eCW1 ([facility]) Patient Treatment Plan of Care Planned Activity Planned Date Details Description Data Source (s) lisdexamfetamine dimesylate 20 MG Oral Capsule [Vyvans e] 12/29/2020 12:00:00 AM EDT eCW1 ([facility]) lisdexamfetamine dimesylate 20 MG Oral Capsule [Vyvans e] 10/02/2020 12:00:00 AM EDT eCW1 ([facility]) Triamcinolone Acetonide 1 MG/ML Topical Cream 08/13/2020 12:00:00 A M EDT eCW1 ([facility]) Triamcinolone Acetonide 1 MG/ML Topical Cream 08/13/2020 12:00:00 A M EDT eCW1 ([facility]) Ketoconazole 20 MG/ML Topical Cream 08/13/2020 12:00:00 AM EDT eCW1 ([facility]) Triamcinolone Acetonide 1 MG/ML Topical Cream 08/13/2020 12:00:00 A M EDT eCW1 ([facility]) Ketoconazole 20 MG/ML Topical Cream 08/13/2020 12:00:00 AM EDT eCW1 ([facility]) Ketoconazole 20 MG/ML Topical Cream 08/13/2020 12:00:00 AM EDT eCW1 ([facility]) Triamcinolone Acetonide 1 MG/ML Topical Cream 08/13/2020 12:00:00 A M EDT eCW1 ([facility]) Triamcinolone Acetonide 1 MG/ML Topical Cream 08/13/2020 12:00:00 A M EDT eCW1 ([facility]) Hydroxyzine Hydrochloride 50 MG Oral Tablet 06/16/2020 12:00:00 AM EDT eCW1 ([facility]) Hydroxyzine Hydrochloride 50 MG Oral Tablet 06/16/2020 12:00:00 AM EDT eCW1 ([facility]) Etonogestrel 68 MG Drug Implant [Nexplanon] 05/01/2020 12:00:00 AM EST eCW1 ([facility]) Etonogestrel 68 MG Drug Implant [Nexplanon] 05/01/2020 12:00:00 AM EST eCW1 ([facility]) Tretinoin 0.25 MG/ML Topical Cream 03/09/2020 12:00:00 AM EST eCW1 ([facility]) Tretinoin 0.25 MG/ML Topical Cream 03/09/2020 12:00:00 AM EST eCW1 ([facility]) Doxycycline Monohydrate 100 MG Oral Capsule 02/25/2020 12:00:00 AM EST eCW1 ([facility]) Doxycycline Monohydrate 100 MG Oral Capsule 02/25/2020 12:00:00 AM EST eCW1 ([facility]) Doxycycline Monohydrate 100 MG Oral Capsule 02/25/2020 12:00:00 AM EST eCW1 ([facility]) Doxycycline Monohydrate 100 MG Oral Capsule 02/25/2020 12:00:00 AM EST eCW1 ([facility]) lamotrigine 150 MG Oral Tablet [Lamictal] 02/20/2020 12:00:00 AM ES T eCW1 ([facility]) lamotrigine 100 MG Oral Tablet [Lamictal] 02/20/2020 12:00:00 AM ES T eCW1 ([facility])
[2021-02-23] MEDS ORDERED: ROCURONIUM BROMIDE 50 MG/5 ML VIAL As Ordered ONE ×2 (08:30→11:17)
[2021-02-23] MEDS ORDERED: propofoL 200 MG/20 ML VIAL As Ordered ONE ×2 (08:30→10:45)
[2021-02-23] MEDS ORDERED: dexameTHASONE 4 MG/ML 1ML VIAL (J1100 PER 1MG) As Ordered ONE (08:30)
[2021-02-23] MEDS ORDERED: ONDANSETRON 4MG/2ML VIAL As Ordered ONE (08:30)
[2021-02-23] MEDS ORDERED: MIDAZOLAM INJ 2MG/2ML VIAL (J2250 PER 1MG) As Ordered ONE (08:30)
[2021-02-23] MEDS ORDERED: LIDOCAINE 2% 100MG/5ML SDV (FOR ANES.) As Ordered ONE (08:30)
[2021-02-23] MEDS ORDERED: fentaNYL 250 MCG/5 ML INJECTION (J3010) As Ordered ONE (08:30)
[2021-02-23] MEDS ORDERED: SCOPOLAMINE 1MG TRANSDERMAL PATCH TOP ONE (09:30)
[2021-02-23] MEDS ORDERED: GENTAMICIN SULF 80MG/2ML VIAL As Ordered ONE (09:49)
[2021-02-23] MEDS ORDERED: BUPIVACAINE LIPOSOME/PF 1.3% 20ML VIAL (13.3MG/ML)(EXPAREL)(C9290 PER1MG) As Ordered ONE (09:49)
[2021-02-23] MEDS ORDERED: SEVOFLURANE INHAL SOLN 250 ML BTL As Ordered ONE (09:52)
[2021-02-23] MEDS ORDERED: ACETAMINOPHEN 1000MG 100ML IV BTL (OFIRMEV) (J0131 PER 10MG) As Ordered ONE (10:37)
[2021-02-23] MEDS ORDERED: SUGAMMADEX SODIUM 500 MG/5 ML VIAL (BRIDION) As Ordered ONE (11:07)
[2021-02-23] MEDS ORDERED: HYDROmorphone HCL 2 MG/ML 1ML VIAL As Ordered ONE (11:07)
[2021-02-23] MEDS ORDERED: METOCLOPRAMIDE INJ 10MG/2ML VIAL (J2765 PER 1) As Ordered ONE (12:55)
--- NOTE | 2021-02-23 13:33 | ROOPDOC ---
[facility] Report Of Operation Report of Operation DATE OF PROCEDURE: 02/23/21 PREOPERATIVE DIAGNOSIS: Bilateral breast hypertrophy. Gender dysphoria. POSTOPERATIVE DIAGNOSIS: same PROCEDURE: Chest masculinization procedure with bilateral breast reduction and free nipple graft. SURGEON: Dr Olivera ANESTHESIA: General ESTIMATED BLOOD LOSS: 50 cc FINDINGS: Female distribution breast. SPECIMENS: Right breast 694 gm. Left breast 794 gm COMPLICATIONS: none REPLACED: none DRAINS: 10 mm JAYSON x 2 POSTOPERATIVE CONDITION: stable DESCRIPTION OF PROCEDURE: DESCRIPTION OF PROCEDURE: This is a 20-year-old transgender male who would like to have chest masculinization procedure. Patient fits the criteria for the procedure. Risks, benefits, and alternatives were discussed with the patient in detail, and he is ready to proceed. The day of surgery, he was marked in the upright position. Informed consent was obtained a day earlier with his mother present at the office. Patient was marked according to double incision subcutaneous mastectomy. He was brought into the operating room and placed in the supine position. Preoperative antibiotics and 5000 units heparin subcutaneous were given. Sequential pneumatic stocking were placed on the lower calves. General anesthesia was induced. He was prepped and draped in the usual sterile fashion. We started our procedure on the right side. Nipple areolar complex was outlined 20 mm in diameter. Superior incision carried out followed by the inframammary incision. Dissection continued by undermining the flap with thick edges from the superior incision toward the midportion of the pectoralis major, then the breast was removed along the pectoralis fascia. Inframammary groove was obliterated, to smooth out the chest appearance. Total weight on the right side is 694 grams. Hemostasis was obtained using electrocautery. We used Exparel 7 cc for local anesthesia to infiltrate in the Pectoralis muscle. Started closing the flap with interrupted 0 Vicryl sutures. 10 mm Tony-Barrett drain was placed through the lateral part of the horizontal scar. Incision closed with interrupted 3-0 Monocryl sutures and 3-0 Monocryl V lock suture. Then we turn our attention to the left side. Nipple areolar complex was outlined 20 mm in diameter. Superior incision carried out followed by the inframammary incision. Dissection continued by undermining the flap with thick edges from the superior incision toward the midportion of the pectoralis major, then the breast was removed along the pectoralis fascia. Inframammary groove was obliterated, to smooth out the chest appearance. Total weight on the right side is 794 grams. Hemostasis was obtained using electrocautery. We used Exparel 7 cc for local anesthesia to infiltrate in the Pectoralis muscle. Started closing the flap with interrupted 0 Vicryl sutures. 10 mm Tony-Barrett drain was placed through the lateral part of the horizontal scar. The remaining of closure carried out with 3-0 Monocryl sutures as well as 3-0 Monocryl V-Loc suture Breast tissue removed was stored on the sterile table. At this point we harvested the nipple areolar complex from each breast. Tissue was defatted and transferred to a chest as a free graft. Location of the nipple is 2.2 cm from inframammary line. Skin opening was made 1.5 x 2.2 cm in oblong overall shape. Nipple areolar complex graft was secured in place with interrupted 4-0 and 5-0 chromic sutures. Bolster dressing was applied and secured in place with 3-0 Mo nocryl sutures. Remaining Exparel injected in the horizontal incision. Total Exparel use 20 cc. Resected tissue sent to pathology in two specimens right and left breast tissue. Dressings were applied to vertical and horizontal incision: Prineo, sabine judith ssing and binder. Patient was extubated in the operating room without difficulty and was transferred to the recovery room in stable condition.. ZEKE OLIVERA DO Feb 23, 2021 13:33
--- NOTE | 2021-02-23 13:33 | POST-OPPD ---
Postoperative Procedure Note Date Of Procedure: Feb 23, 2021 PREOPERATIVE DIAGNOSIS: Bilateral breast hypertrophy. Gender dysphoria. POSTOPERATIVE DIAGNOSIS: same PROCEDURE: Chest masculinization procedure with bilateral breast reduction and free nipple graft. SURGEON: Dr Olivera ANESTHESIA: General ESTIMATED BLOOD LOSS: 50 cc FINDINGS: Female distribution breast. SPECIMENS: Right breast 694 gm. Left breast 794 gm COMPLICATIONS: none REPLACED: none DRAINS: 10 mm JAYSON x 2 POSTOPERATIVE CONDITION: stable ZEKE OLIVERA DO Feb 23, 2021 13:33
[2021-02-23] MEDS ORDERED: ONDANSETRON 4MG/2ML VIAL IV PRN ×2 (13:35→13:50)
[2021-02-23] MEDS ORDERED: PERCOCET 5MG/325MG TAB PO PRN (13:35)
[2021-02-23] MEDS ORDERED: ACETAMINOPHEN TAB 650MG DOSE (2X325MG) PO PRN (13:35)
[2021-02-23] MEDS ORDERED: KETOROLAC TROMETHAMINE 10 MG TAB PO PRN (13:35)
[2021-02-23] MEDS ORDERED: oxyCODONE 5MG TAB PO PRN (13:50)
[2021-02-23] MEDS ORDERED: HYDROMORPHONE HCL 0.5 MG/ 0.5 ML SYRINGE (J1170 PER 1) IV PRN (13:50)
[2021-02-23] MEDS ORDERED: LR 1,000 ML IV SCH (13:50)
[2021-02-23] MEDS ORDERED: fentaNYL 100 MCG/2 ML INJECTION (J3010) IV PRN (13:50)
[2021-02-23] MEDS: LR 1,000 ML IV SCH (16:00)
[2021-02-23 16:02] VITALS: BP 128/76
[2021-02-23 16:37] VITALS: BP 123/68
[2021-02-23 17:20] VITALS: BP 127/58
[2021-02-23 18:32] VITALS: BP 121/74
[2021-02-23] MEDS: ceFAZolin SOD 1 GM in D5W MINI-BAG PLUS 50 ML IV SCH (18:44)
[2021-02-23 19:30] VITALS: BP 141/60
[2021-02-23 20:30] VITALS: BP 125/67
[2021-02-24 00:45] VITALS: BP 125/65
[2021-02-24] MEDS: LR 1,000 ML IV SCH (02:54)
[2021-02-24] MEDS: ceFAZolin SOD 1 GM in D5W MINI-BAG PLUS 50 ML IV SCH ×2 (02:54→11:28)
[2021-02-24 04:30] VITALS: BP 120/64
--- NOTE | 2021-02-24 09:36 | IPNPDOC ---
Subjective General Date Seen: Feb 24, 2021 Subject Chief Complaint/History The patient is a 20-year-old female admitted with a reason for visit of Gender Dysphoria, Bilateral Breast Hypertrophy. Patient status post chest masculinization procedure postop day 1. Feeling well today. Pain controlled. Patient ambulated to the bathroom and tolerate regular diet. Current Medications Current Medications Current Medications Medications (Trade) Dose Ordered Sig/Angela Route PRN Reason Start Time Stop Time Status Last Admin Dose Admin Acetaminophen (Tylenol Tab) 650 mg Q6H PRN PO MILD PAIN (PS 1-4) 02/23/21 13:35 Cefazolin Sodium 1 gm/Dextrose 50 ml @ 100 mls/hr Q8H IV 02/23/21 19:00 02/24/21 02:54 Fentanyl Citrate (Sublimaze) 25 mcg Q5MP PRN IV PAIN LEVEL 8-10 02/23/21 13:50 02/23/21 15:50 DC Hydromorphone HCl (Dilaudid) 0.2 mg Q5MP PRN IV PAIN LEVEL 5-7 02/23/21 13:50 02/23/21 15:50 DC Ketorolac Tromethamine (ToRADol) 10 mg Q6HP PRN PO MODERATE PAIN (PS 5-7) 02/23/21 13:35 02/28/21 13:34 02/24/21 00:47 Lactated Ringer's 1,000 ml @ 75 mls/hr [id number] IV 02/23/21 13:35 02/24/21 02:54 Lactated Ringer's 1,000 ml @ 100 mls/hr Q10H IV 02/23/21 13:50 02/23/21 15:50 DC Ondansetron HCl (ZOFRAN INJection) 4 mg Q4H PRN IV NAUSEA OR VOMITING 02/23/21 13:35 Ondansetron HCl (ZOFRAN INJection) 4 mg Q4HP PRN IV NAUSEA OR VOMITING 02/23/21 13:50 02/23/21 15:50 DC Oxycodone HCl (Roxicodone, Oxyir) 5 mg ASDIRECTED PRN PO PAIN LEVEL 1-4 02/23/21 13:50 02/23/21 15:50 DC 02/23/21 14:26 Oxycodone/ Acetaminophen (Percocet 5mg/ 325mg Tablet) 2 tab Q4HP PRN PO PAIN LEVEL 8-10 02/23/21 13:35 Allergies Coded Allergies: No Known Allergies (Unverified , 02/23/21) Objective Physical Examination Examination GENERAL APPEARANCE:Patient seen, laying in bed, awake, alert, and oriented. Comfortable, in no acute distress. SKIN: Warm and moist. BREAST: Right and left soft, non-tender incisions intact. JAYSON drains: L30/R30 cc/24 hr. NAC: with bolster dressing in place. HEENT: Normocephalic, atraumatic. [place] palpebral conjunctiva, anicteric sclerae. Lips and mucosa appear moist. NECK: Supple, no thyromegaly. No obvious jugular venous distention. LUNGS: Clear to auscultation bilaterally. No wheezing appreciated. HEART: No chest wall abnormalities. Regular rate and rhythm with no murmurs appreciated. ABDOMEN: Abdomen is soft, non-tender, non-distended. EXTREMITIES: No edema identified. No calf tenderness. Vital Signs Vital Signs Date Time Temp Pulse Resp B/P (MAP) Pulse Ox O2 Delivery O2 Flow Rate FiO2 02/24/21 04:30 97.9 51 18 120/64 (82) 98 Room Air 02/23/21 13:55 3 I&Os I&O- Last 24 Hours up to 6 AM 02/24/21 05:59 Intake Total 1760 ml Output Total 50 ml Balance 1710 ml Impression Status post chest masculinization procedure postop day 1. Dressings changed today. Bolster dressings on the nipple areolar complexes are in place. Patient is healing well. Continue with compressive dressings at home, monitoring JAYSON drain output. Follow-up in plastic surgery office next week. Plan / VTE VTE Prophylaxis Ordered?: Yes ZEKE OLIVERA DO Feb 24, 2021 09:36
[2021-02-24] MEDS ORDERED: TRAM50TA2 PO (09:41)
== END 2021-02-24 12:20 | disposition home or self-care (01) ==
LOC: M SDC 07:53 → M MS5PR 15:45 → M SDC 02-24 12:20
PROVIDERS: ATTEND Plastic Surgery Surgery of the Hand
DX: N62 Hypertrophy of breast (principal); F64.9 Gender identity disorder, unspecified; K58.9 Irritable bowel syndrome, unspecified; F31.9 Bipolar disorder, unspecified; F41.9 Anxiety disorder, unspecified; L30.9 Dermatitis, unspecified; J45.909 Unspecified asthma, uncomplicated; F45.22 Body dysmorphic disorder; R48.0 Dyslexia and alexia; Z79.899 Other long term (current) drug therapy; Z79.1 Long term (current) use of non-steroidal anti-inflammatories (NSAID); Z79.2 Long term (current) use of antibiotics
CPT/HCPCS: 19318; 81025; 88305; 96374; 96376; C9290; J0131; J0690; J1100; J1170; J1580; J1644; J2250; J2405; J2765; J3010

== ENCOUNTER → 2021-10-26 | Outpatient (CLI) | payer OTHER ==
[~2021-10-26] MED LIST changes: -DICY20TA11 PO; +DICY20TA20 PO; -HEPARIN SOD (PORCINE) 5000UNITS/ML 1ML VIAL/SYRINGE SQ ONE; -LR 1,000 ML IV ONE; +TRAM50TA2 PO; -ceFAZolin SOD 2 GM in IV 1 EA IV ONE
[2021-10-26 17:19] LABS: BASO # 0.1 10^3/uL (0.0-0.2); BASO % 0.8 % (0.0-1.0); EOS # 0.3 10^3/uL (0.0-0.5); EOS % 5.5 % (0.0-3.0); HEMATOCRIT 36.2 % (36.0-47.0); HEMOGLOBIN 11.4 g/dl (12.0-15.5); LYMPH # 2.4 10^3/uL (1.5-5.0); LYMPH % 39.3 % (24.0-44.0); MEAN CORPUSCULAR HEMOGLOBIN 26.6 pg (27.0-33.0); MEAN CORPUSCULAR HGB CONC 31.5 g/dl (32.0-36.5); MEAN CORPUSCULAR VOLUME 84.4 fl (80.0-96.0); MONO # 0.5 10^3/uL (0.0-0.8); MONO % 8.3 % (2.0-8.0); NEUTROPHILS # 2.8 10^3/uL (1.5-8.5); NEUTROPHILS % 45.9 % (36.0-66.0); PLATELET COUNT, AUTOMATED 262 10^3/uL (150-450); RED BLOOD COUNT 4.29 10^6/uL (4.00-5.40); WHITE BLOOD COUNT 6.2 10^3/uL (4.0-10.0)
[2021-10-26 17:45] LABS: ALBUMIN 3.6 GM/DL (3.2-5.2); ALT/SGPT 15 U/L (12-78); BILIRUBIN,TOTAL 0.1 MG/DL (0.2-1.0); BLOOD UREA NITROGEN 13 MG/DL (7-18); CALCIUM LEVEL 8.8 MG/DL (8.5-10.1); CARBON DIOXIDE LEVEL 29 MEQ/L (21-32); CHLORIDE LEVEL 107 MEQ/L (98-107); FREE T4 0.75 NG/DL (0.78-1.33); GLUCOSE, FASTING 68 MG/DL (70-100); IRON (FE) 32 UG/DL (50-170); PERCENT SATURATION 8.9 % (13.2-45.0); POTASSIUM SERUM 4.1 MEQ/L (3.5-5.1); SODIUM LEVEL 139 MEQ/L (136-145); THYROID STIMULATING HORMONE 0.955 uIU/ML (0.463-3.98); TOTAL IRON BINDING CAPACITY 359 UG/DL (250-450); TOTAL PROTEIN 6.7 GM/DL (6.4-8.2)
[2021-10-26 18:06] LABS: TOTAL 25(OH) VITAMIN D 51.3 NG/ML (30.0-100.0); VITAMIN B12 LEVEL 1379 PG/ML
[2021-10-26 18:17] LABS: ERYTHROCYTE SEDIMENTATION RATE 6 mm/hr (0-20)
== END ==
LOC: M WUC 10:23
PROVIDERS: ATTEND Physician Assistant
DX: R53.82 Chronic fatigue, unspecified (principal)

== ENCOUNTER → 2021-12-23 | Outpatient (CLI) | payer OTHER | LOC: M SLEEP HO 10:05 | PROVIDERS: ATTEND Physician Assistant | DX: G47.8 Other sleep disorders (principal) ==

== ENCOUNTER → 2021-12-27 | Outpatient (REF) | payer OTHER | LOC: M SFHCADAM 09:09 | PROVIDERS: ATTEND Physician Assistant | DX: Z53.9 Procedure and treatment not carried out, unspecified reason (principal) ==

== ENCOUNTER → 2022-01-07 | Outpatient (CLI) | payer OTHER ==
[2022-01-07 17:28] LABS: BASO # 0.1 10^3/uL (0.0-0.2); BASO % 0.7 % (0.0-1.0); EOS # 0.2 10^3/uL (0.0-0.5); EOS % 2.8 % (0.0-3.0); HEMATOCRIT 40.9 % (36.0-47.0); HEMOGLOBIN 12.9 g/dl (12.0-15.5); LYMPH # 2.5 10^3/uL (1.5-5.0); LYMPH % 29.8 % (24.0-44.0); MEAN CORPUSCULAR HEMOGLOBIN 26.8 pg (27.0-33.0); MEAN CORPUSCULAR HGB CONC 31.5 g/dl (32.0-36.5); MEAN CORPUSCULAR VOLUME 84.9 fl (80.0-96.0); MONO # 0.6 10^3/uL (0.0-0.8); MONO % 7.4 % (2.0-8.0); NEUTROPHILS % 58.5 % (36.0-66.0); PLATELET COUNT, AUTOMATED 262 10^3/uL (150-450); RED BLOOD COUNT 4.82 10^6/uL (4.00-5.40); WHITE BLOOD COUNT 8.5 10^3/uL (4.0-10.0)
[2022-01-07 18:17] LABS: ALBUMIN 3.7 GM/DL (3.2-5.2); ALT/SGPT 23 U/L (12-78); BILIRUBIN,TOTAL 0.3 MG/DL (0.2-1.0); BLOOD UREA NITROGEN 10 MG/DL (7-18); CALCIUM LEVEL 9.6 MG/DL (8.5-10.1); CARBON DIOXIDE LEVEL 30 MEQ/L (21-32); CHLORIDE LEVEL 103 MEQ/L (98-107); CREATININE FOR GFR 0.73 MG/DL (0.55-1.30); FERRITIN 13 NG/ML (8-252); FREE T4 0.88 NG/DL (0.78-1.33); GLUCOSE, FASTING 84 MG/DL (70-100); IRON (FE) 74 UG/DL (50-170); PERCENT SATURATION 22.4 % (13.2-45.0); POTASSIUM SERUM 4.6 MEQ/L (3.5-5.1); SODIUM LEVEL 137 MEQ/L (136-145); TOTAL IRON BINDING CAPACITY 331 UG/DL (250-450); TOTAL PROTEIN 7.1 GM/DL (6.4-8.2)
[2022-01-07 18:47] LABS: FOLATE 11.3 NG/ML
[2022-01-10 13:17] LABS: VITAMIN B12 LEVEL 1054 PG/ML
== END ==
LOC: M WUC 11:00
PROVIDERS: ATTEND Physician Assistant
DX: R53.82 Chronic fatigue, unspecified (principal); D50.9 Iron deficiency anemia, unspecified; E03.8 Other specified hypothyroidism

== ENCOUNTER → 2022-06-06 | Outpatient (CLI) | payer OTHER ==
[2022-06-06 12:29] LABS: BASO % 0.4 % (0.0-1.0); EOS # 0.3 10^3/uL (0.0-0.5); EOS % 3.4 % (0.0-3.0); HEMATOCRIT 38.3 % (36.0-47.0); HEMOGLOBIN 12.6 g/dl (12.0-15.5); LYMPH # 3.4 10^3/uL (1.5-5.0); LYMPH % 36.9 % (24.0-44.0); MEAN CORPUSCULAR HEMOGLOBIN 27.5 pg (27.0-33.0); MEAN CORPUSCULAR HGB CONC 32.9 g/dl (32.0-36.5); MEAN CORPUSCULAR VOLUME 83.6 fl (80.0-96.0); MONO # 0.6 10^3/uL (0.0-0.8); MONO % 6.4 % (2.0-8.0); NEUTROPHILS # 4.9 10^3/uL (1.5-8.5); NEUTROPHILS % 52.7 % (36.0-66.0); PLATELET COUNT, AUTOMATED 272 10^3/uL (150-450); RED BLOOD COUNT 4.58 10^6/uL (4.00-5.40); WHITE BLOOD COUNT 9.3 10^3/uL (4.0-10.0)
[2022-06-06 12:53] LABS: ALBUMIN 3.3 G/DL (3.2-5.2); ALKALINE PHOSPHATASE 71 U/L (46-116); ALT/SGPT 12 U/L (7.0-40); AST/SGOT 16 U/L (<34); BILIRUBIN,TOTAL 0.4 MG/DL (0.3-1.2); BLOOD UREA NITROGEN 10 MG/DL (9-23); CALCIUM LEVEL 8.5 MG/DL (8.5-10.1); CARBON DIOXIDE LEVEL 28 MMOL/L (20-31); CHLORIDE LEVEL 105 MMOL/L (98-107); CREATININE FOR GFR 0.74 MG/DL (0.55-1.30); GLOMERULAR FILTRATION RATE > 60.0 (>60); GLUCOSE, FASTING 69 MG/DL (60-100); IRON (FE) 140 UG/DL (50-170); PERCENT SATURATION 41.1 % (13.2-45.0); POTASSIUM SERUM 3.8 MMOL/L (3.5-5.1); SODIUM LEVEL 140 MMOL/L (136-145); TOTAL IRON BINDING CAPACITY 341 UG/DL (250-425); TOTAL PROTEIN 6.2 G/DL (5.7-8.2)
[2022-06-06 12:54] LABS: FERRITIN 17.5 NG/ML (7.3-270.7); FREE T4 0.94 NG/DL (0.89-1.76)
[2022-06-06 12:55] LABS: FOLATE 7.36 NG/ML (>5.4); THYROID STIMULATING HORMONE 3.624 uIU/ML (0.55-4.78); VITAMIN B12 LEVEL 748 PG/ML (211-911)
== END ==
LOC: M WUC 08:37
PROVIDERS: ATTEND Physician Assistant
DX: R53.82 Chronic fatigue, unspecified (principal); D50.9 Iron deficiency anemia, unspecified; E03.8 Other specified hypothyroidism

== ENCOUNTER → 2022-07-14 | Outpatient (CLI) | payer OTHER ==
[~2022-07-14] MED LIST changes: +PROHANCE 279.3MG/ML 15ML VIAL ONE
== END ==
LOC: M PLAIMG 07:50
PROVIDERS: ATTEND Physician Assistant
DX: R29.898 Other symptoms and signs involving the musculoskeletal system (principal)
CPT/HCPCS: 70553; A9576

== ENCOUNTER 2022-07-24 14:01 | Emergency (ER) | payer OTHER ==
[~2022-07-24] VITALS: Ht 172.7 cm; Wt 81.5 kg
[~2022-07-24 14:01] MED LIST changes: -PROHANCE 279.3MG/ML 15ML VIAL ONE
[2022-07-24 14:02] VITALS: BP 127/76
[2022-07-24] MEDS ORDERED: DERMABOND TOPICAL SKIN ADHESIVE TOP ONE (16:15)
[2022-07-24] MEDS ORDERED: BOOSTRIX VACCINE (TETANUS/DIPHTH/ACEL. PERTUSSIS) 0.5ML SYR IM ONE (16:15)
== END 2022-07-24 16:52 | disposition home or self-care (01) ==
LOC: M ED 14:01
DX: S61.201A Unspecified open wound of left index finger without damage to nail, initial encounter (principal); W31.2XXA Contact with powered woodworking and forming machines, initial encounter; Y92.009 Unspecified place in unspecified non-institutional (private) residence as the place of occurrence of the external cause; Y93.89 Activity, other specified; Y99.8 Other external cause status; J45.909 Unspecified asthma, uncomplicated

== ENCOUNTER → 2022-09-15 | Outpatient (CLI) | payer OTHER ==
[2022-09-15 12:18] LABS: BASO % 0.5 % (0.0-1.0); EOS # 0.3 10^3/uL (0.0-0.5); EOS % 4.2 % (0.0-3.0); HEMATOCRIT 37.9 % (36.0-47.0); HEMOGLOBIN 12.5 g/dl (12.0-15.5); LYMPH # 2.6 10^3/uL (1.5-5.0); LYMPH % 34.6 % (24.0-44.0); MEAN CORPUSCULAR HEMOGLOBIN 27.5 pg (27.0-33.0); MEAN CORPUSCULAR VOLUME 83.5 fl (80.0-96.0); MONO # 0.4 10^3/uL (0.0-0.8); MONO % 5.4 % (2.0-8.0); NEUTROPHILS # 4.1 10^3/uL (1.5-8.5); PLATELET COUNT, AUTOMATED 277 10^3/uL (150-450); RED BLOOD COUNT 4.54 10^6/uL (4.00-5.40); WHITE BLOOD COUNT 7.4 10^3/uL (4.0-10.0)
[2022-09-15 12:48] LABS: PERCENT SATURATION 26.7 % (13.2-45.0)
[2022-09-15 12:49] LABS: FERRITIN 22.7 NG/ML (7.3-270.7)
== END ==
LOC: M WUC 09:13
PROVIDERS: ATTEND Physician Assistant
DX: D50.9 Iron deficiency anemia, unspecified (principal)

== ENCOUNTER → 2022-10-10 | Outpatient (CLI) | payer OTHER ==
[~2022-10-10] MED LIST changes: +DICY-61 PO; -DICY10CA13 PO
== END ==
LOC: M SLEEP 20:00
PROVIDERS: ATTEND Physician Assistant
DX: R40.0 Somnolence (principal); R06.83 Snoring

== ENCOUNTER → 2022-11-16 | Outpatient (REF) | payer OTHER | LOC: M SFHCWAGY 17:33 | PROVIDERS: ATTEND Nurse Practitioner Family | DX: Z12.4 Encounter for screening for malignant neoplasm of cervix (principal) ==

== ENCOUNTER → 2023-02-08 | Outpatient (CLI) | payer OTHER ==
[~2023-02-08] MED LIST changes: +METH-1165 PO
== END ==
LOC: M WUC 09:23
PROVIDERS: ATTEND Physician Assistant
DX: M54.6 Pain in thoracic spine (principal)

== ENCOUNTER → 2023-06-21 | Outpatient (CLI) | payer OTHER ==
[~2023-06-21] MED LIST changes: +GASTROGRAFIN SOLUTION 30ML As Ordered ONE; +ISOVUE-370 76% 100ML VIAL As Ordered ONE
== END ==
LOC: M RAD 13:19
PROVIDERS: ATTEND Physician Assistant
DX: N93.9 Abnormal uterine and vaginal bleeding, unspecified (principal); R10.84 Generalized abdominal pain; R11.0 Nausea
CPT/HCPCS: 74177; Q9963; Q9967

== ENCOUNTER → 2023-06-21 | Outpatient (CLI) | payer OTHER ==
[~2023-06-21] MED LIST changes: -GASTROGRAFIN SOLUTION 30ML As Ordered ONE; -ISOVUE-370 76% 100ML VIAL As Ordered ONE
[2023-06-21 17:11] LABS: BASO # 0.1 10^3/uL (0.0-0.2); BASO % 0.9 % (0.0-1.0); EOS # 0.2 10^3/uL (0.0-0.5); EOS % 3.5 % (0.0-3.0); HEMATOCRIT 40.6 % (36.0-47.0); HEMOGLOBIN 13.4 g/dl (12.0-15.5); LYMPH # 2.9 10^3/uL (1.5-5.0); LYMPH % 41.8 % (24.0-44.0); MEAN CORPUSCULAR VOLUME 81.9 fl (80.0-96.0); MONO # 0.6 10^3/uL (0.0-0.8); MONO % 8.4 % (2.0-8.0); NEUTROPHILS # 3.1 10^3/uL (1.5-8.5); NEUTROPHILS % 45.1 % (36.0-66.0); PLATELET COUNT, AUTOMATED 261 10^3/uL (150-450); RED BLOOD COUNT 4.96 10^6/uL (4.00-5.40); WHITE BLOOD COUNT 6.8 10^3/uL (4.0-10.0)
[2023-06-21 17:33] LABS: IRON (FE) 83 UG/DL (50-170)
[2023-06-21 17:34] LABS: ALBUMIN 3.1 G/DL (3.2-5.2); ALKALINE PHOSPHATASE 82 U/L (46-116); ALT/SGPT 28 U/L (7.0-40); AST/SGOT 23 U/L (<34); BILIRUBIN,TOTAL 0.2 MG/DL (0.3-1.2); BLOOD UREA NITROGEN 13 MG/DL (9-23); CALCIUM LEVEL 8.8 MG/DL (8.5-10.1); CARBON DIOXIDE LEVEL 29 MMOL/L (20-31); CHLORIDE LEVEL 104 MMOL/L (98-107); CREATININE FOR GFR 0.79 MG/DL (0.55-1.30); GLOMERULAR FILTRATION RATE > 60.0 (>60); GLUCOSE, FASTING 101 MG/DL (60-100); PERCENT SATURATION 23.4 % (13.2-45.0); POTASSIUM SERUM 4.4 MMOL/L (3.5-5.1); SODIUM LEVEL 138 MMOL/L (136-145); TOTAL IRON BINDING CAPACITY 354 UG/DL (250-425); TOTAL PROTEIN 6.5 G/DL (5.7-8.2)
[2023-06-21 17:37] LABS: FREE T4 0.95 NG/DL (0.89-1.76); THYROID STIMULATING HORMONE 1.913 uIU/ML (0.55-4.78)
== END ==
LOC: M WUC 12:46
PROVIDERS: ATTEND Physician Assistant
DX: K58.0 Irritable bowel syndrome with diarrhea (principal); F90.9 Attention-deficit hyperactivity disorder, unspecified type; F31.9 Bipolar disorder, unspecified; J45.20 Mild intermittent asthma, uncomplicated; D50.9 Iron deficiency anemia, unspecified; R10.84 Generalized abdominal pain

== ENCOUNTER → 2023-09-26 | Outpatient (CLI) | payer OTHER, MEDICAID ==
[~2023-09-26] MED LIST changes: +DOXY-323 PO; -DOXY-443 PO
== END ==
LOC: M WUC 10:10
PROVIDERS: ATTEND Physician Assistant
DX: S93.692A Other sprain of left foot, initial encounter (principal); S93.402A Sprain of unspecified ligament of left ankle, initial encounter; X58.XXXA Exposure to other specified factors, initial encounter; Y92.9 Unspecified place or not applicable

== ENCOUNTER → 2024-01-01 | Outpatient (REF) | payer OTHER ==
[~2024-01-01] MED LIST changes: -DOXY-323 PO; +DOXY-441 PO
[2024-01-01 13:00] LABS: BASO % 0.5 % (0.0-1.0); EOS # 0.4 10^3/uL (0.0-0.5); EOS % 4.7 % (0.0-3.0); HEMATOCRIT 43.3 % (36.0-47.0); HEMOGLOBIN 13.9 g/dl (12.0-15.5); LYMPH % 37.9 % (24.0-44.0); MEAN CORPUSCULAR HEMOGLOBIN 26.6 pg (27.0-33.0); MEAN CORPUSCULAR HGB CONC 32.1 g/dl (32.0-36.5); MONO # 0.5 10^3/uL (0.0-0.8); MONO % 6.2 % (2.0-8.0); NEUTROPHILS # 3.9 10^3/uL (1.5-8.5); NEUTROPHILS % 50.4 % (36.0-66.0); PLATELET COUNT, AUTOMATED 338 10^3/uL (150-450); RED BLOOD COUNT 5.22 10^6/uL (4.00-5.40); WHITE BLOOD COUNT 7.8 10^3/uL (4.0-10.0)
[2024-01-01 13:11] LABS: HEMOGLOBIN A1c 5.1 % (4.0-6.0)
[2024-01-01 13:24] LABS: ALBUMIN 3.4 G/DL (3.2-5.2); ALKALINE PHOSPHATASE 102 U/L (46-116); ALT/SGPT 27 U/L (7.0-40); AST/SGOT 19 U/L (<34); BILIRUBIN,TOTAL 0.2 MG/DL (0.3-1.2); BLOOD UREA NITROGEN 13 MG/DL (9-23); CALCIUM LEVEL 10.3 MG/DL (8.5-10.1); CARBON DIOXIDE LEVEL 30 MMOL/L (20-31); CHLORIDE LEVEL 106 MMOL/L (98-107); CREATININE FOR GFR 0.86 MG/DL (0.55-1.30); GLOMERULAR FILTRATION RATE > 60.0 (>60); GLUCOSE, FASTING 77 MG/DL (60-100); POTASSIUM SERUM 4.4 MMOL/L (3.5-5.1); SODIUM LEVEL 140 MMOL/L (136-145); TOTAL PROTEIN 7.2 G/DL (5.7-8.2)
[2024-01-01 13:28] LABS: FREE T4 1.13 NG/DL (0.89-1.76); THYROID STIMULATING HORMONE 1.732 uIU/ML (0.55-4.78)
== END ==
LOC: M SFHCADAM 11:03
PROVIDERS: ATTEND Physician Assistant
DX: E66.09 Other obesity due to excess calories (principal); F90.9 Attention-deficit hyperactivity disorder, unspecified type; F31.9 Bipolar disorder, unspecified; R73.01 Impaired fasting glucose; Z68.33 Body mass index [BMI] 33.0-33.9, adult

== ENCOUNTER → 2025-01-07 | Outpatient (REF) | LOC: M PLAIMG 10:52 | PROVIDERS: ATTEND Internal Medicine | DX: R52 Pain, unspecified (principal) ==

== ENCOUNTER → 2025-01-23 | Outpatient (CLI) | payer OTHER ==
[2025-01-23 15:15] LABS: BASO # 0.0 10^3/uL (0.0-0.2); BASO % 0.4 % (0.0-1.0); EOS # 0.2 10^3/uL (0.0-0.5); EOS % 1.5 % (0.0-3.0); LYMPH # 3.0 10^3/uL (1.5-5.0); LYMPH % 30.1 % (24.0-44.0); MONO # 0.5 10^3/uL (0.0-0.8); MONO % 4.8 % (2.0-8.0); NEUTROPHILS # 6.2 10^3/uL (1.5-8.5); NEUTROPHILS % 63.0 % (36.0-66.0); PLATELET COUNT, AUTOMATED 348 10^3/uL (150-450)
[2025-01-23 15:18] LABS: ALT/SGPT 22 U/L (7.0-40); AST/SGOT 24 U/L (<34); CALCIUM LEVEL 9.1 MG/DL (8.5-10.1); CARBON DIOXIDE LEVEL 28 MMOL/L (20-31); CHLORIDE LEVEL 103 MMOL/L (98-107); CREATININE FOR GFR 0.84 MG/DL (0.55-1.30); GLOMERULAR FILTRATION RATE > 90.0 (>60); POTASSIUM SERUM 4.2 MMOL/L (3.5-5.1); SODIUM LEVEL 142 MMOL/L (136-145)
== END ==
LOC: M PLALAB 13:11
PROVIDERS: ATTEND Family Medicine
DX: Z01.818 Encounter for other preprocedural examination (principal)

== ENCOUNTER 2025-02-04 07:06 | Day surgery (SDC) | payer OTHER ==
[~2025-02-04] VITALS: Ht 172.7 cm; Wt 82.1 kg
[~2025-02-04 07:06] MED LIST changes: +GABAPENTIN 300 MG CAP PO ONE; +LAMO200T54 PO; +LR 1,000 ML IV SCH; +RA N1TAB PO; +TRAZ-252 PO; +VITA100093 PO
[2025-02-04] MEDS: SCOPOLAMINE 1MG TRANSDERMAL PATCH TOP ONE (07:55)
[2025-02-04] MEDS ORDERED: LIDOCAINE 2% 100 MG/5 ML SDV (FOR ANES.) As Ordered ONE (09:05)
[2025-02-04] MEDS ORDERED: dexmedeTOMIDine (4 MCG/ML) 200 MCG/50 ML BTL As Ordered ONE (09:05)
[2025-02-04] MEDS ORDERED: ROCURONIUM BROMIDE 50MG/5ML VIAL As Ordered ONE (09:05)
[2025-02-04] MEDS ORDERED: ONDANSETRON 4MG/2ML VIAL As Ordered ONE (09:05)
[2025-02-04] MEDS ORDERED: dexAMETHasone 4 MG/ML 1 ML VIAL As Ordered ONE (09:05)
[2025-02-04] MEDS ORDERED: MIDAZOLAM INJ 2 MG/2 ML VIAL As Ordered ONE (09:06)
[2025-02-04] MEDS: ceFAZolin SOD 2 GM IV ONCE IV ONE (09:30)
[2025-02-04] MEDS: EPINEPHrine 1 MG/ML INJ 30 ML MD-VIAL As Ordered ONE (10:32)
[2025-02-04] MEDS: LIDOCAINE 1% MDV 20 ML VIAL As Ordered ONE (10:32)
[2025-02-04] MEDS: GENTAMICIN SULF 80 MG/2 ML VIAL As Ordered ONE (10:45)
[2025-02-04] MEDS ORDERED: ACETAMINOPHEN 1000MG/100ML IV BAG As Ordered ONE (10:58)
[2025-02-04] MEDS ORDERED: SUGAMMADEX SODIUM 200 MG/2 ML VIAL As Ordered ONE (11:23)
[2025-02-04] MEDS ORDERED: HYDROMORPHONE HCL 0.5 MG/0.5 ML SYRINGE IV PRN (11:35)
[2025-02-04] MEDS ORDERED: MORPHINE 2 MG/ML 1 ML VIAL IV PRN (11:35)
[2025-02-04] MEDS ORDERED: TRAM50TA2 PO (12:09)
[2025-02-04 14:00] VITALS: BP 99/60; TEMP 96.9; O2SAT 98
== END 2025-02-04 14:00 | disposition home or self-care (01) ==
LOC: M SDC 07:06
PROVIDERS: ATTEND Plastic Surgery Surgery of the Hand
DX: L91.0 Hypertrophic scar (principal); L98.7 Excessive and redundant skin and subcutaneous tissue; F84.9 Pervasive developmental disorder, unspecified; J45.909 Unspecified asthma, uncomplicated; Z79.899 Other long term (current) drug therapy; F60.3 Borderline personality disorder; F41.9 Anxiety disorder, unspecified; F32.A Depression, unspecified
CPT/HCPCS: 14001; 15877; 81025; 88300; J0131; J0165; J0665; J0666; J0688; J1100; J1580; J2250; J2405; J3010